=== PATIENT | female | born 1990 | race Caucasian/White ===

== ENCOUNTER 2019-07-25 17:06 | Emergency (ER) | payer MEDICAID, SELFPAY ==
[2019-07-25 17:22] VITALS: BP 136/80; PULSE 107; RESP 18; TEMP 36.3; O2SAT 97; BMI 19.3
--- NOTE | 2019-07-25 18:12 | ED_ITS ---
HPI - SOB/Dyspnea General: Chief Complaint: Shortness of Breath/Dyspnea Stated Complaint: sob Time Seen by Provider: 07/25/19 18:11 Source: patient Mode of arrival: ambulatory Limitations: no limitations History of Present Illness: HPI Narrative: Patient comes in for concerns of shortness of breath starting yesterday. Patient states that she had a fever for 3 days that broke this morning. Patient has not run a fever all day today. Patient has felt more short of breath. Patient reports not being outside the area but does report that her son was sick about 2 weeks ago and was diagnosed with viral pneumonia at that time. Patient appears well. Patient appears in no acute distress. Patient appears in no pain. MD elicited complaint: shortness of breath Review of Systems General: Reports: 10 or more systems reviewed and unremarkable except in HPI and below Resp: Reports: shortness of breath [facility] ED PFSH: Medical History (Updated 07/25/19 @ 20:03 by DOLORES Wetzel) History of live X 2 Social History Smoking and tobacco status: current every day smoker Physical Exam Const: COMMON NORMALS: no apparent distress and oriented x3 GENERAL APPEARANCE: cooperative HENMT: COMMON NORMALS: normocephalic, TM's normal bilaterally and external nose normal HEAD & SCALP: normal to inspection and normocephalic NOSE: external nose normal TYMPANIC MEMBRANE: TM's normal bilaterally MOUTH: oral and palatal mucosa normal THROAT: posterior oropharynx normal Eye: GENERAL EYE: normal appearance of both eyes Neck/C-Spine: COMMON NORMALS: full ROM Lymph: LYMPHATIC: no lymphadenopathy noted Chest: COMMONS NORMALS: inspection of chest normal Resp: COMMON NORMALS: normal respiratory effort EFFORT & INSPECTION: Yes able to speak in complete sentences Cardio: COMMON NORMALS: regular rate and regular rhythm RATE: regular rate RHYTHM: regular rhythm GI: COMMON NORMALS: non-tender : COMMON NORMALS: Yes no CVA tenderness BLADDER/KIDNEY EXAM: Yes no CVA tenderness Back/Pelvis: COMMON NORMALS: no CVA tenderness and thoracic and lumbar spine normal to inspection Extremity: COMMON NORMALS: normal to inspection Neuro: COMMON NORMALS: oriented x3 and moves all extremities Psych: COMMON NORMALS: mental status grossly normal and cooperative Skin: COMMON NORMALS: no rashes or lesions noted GENERAL SKIN EXAM: no rashes or lesions noted Course Vital Signs: Vital signs: Vital Signs Temperature 97.3 F L 04/06/20 17:22 Pulse Rate 92 07/25/19 20:00 Respiratory Rate 16 07/25/19 20:00 Blood Pressure 127/82 07/25/19 20:00 Pulse Oximetry 98 07/25/19 20:00 MDM - SOB/Dyspnea MDM Narrative: Medical decision making narrative: Patient comes in today with complaints of fever for 3 days and initiation of shortness of breath starting last night. Patient appears well. Exam notes clear lung sounds. Posterior pharynx is pink and moist. Vital signs are normal. Differential diagnosis includes upper respiratory infection, bronchitis, pneumonia, viral syndrome. Chest x-ray was normal. Flu swab was negative. Patient appears actually pretty well suspect the patient had a short viral syndrome. Patient screened for cor onavirus 19 and did not have any indicators for contact with individuals or travel to a high risk area. Recommended patient monitor for worsening signs and symptoms and return as needed for new concerns. Patient agreed to plan she was offered testing for coronavirus but denied it. Lab Data: Labs: Lab Results 07/25/19 Range/Units 18:42 Influenza Type A A g Negative (Negative) Influenza Type B A g Negative (Negative) Discharge Plan Discharge Patient Disposition: Home, Self-Care Clinical Impression: Bronchitis Condition: Stable Prescriptions: No Action ibuprofen 200 mg Tablet 800 mg PO PRN RF: 0 Discharge Orders: Discharge Order (Routine); Ordered 07/25/19 Ordered By: Kaveh Patel Referrals: Steffen Voss MD [Family Provider] - Discharge Diet: Usual diet Discharge Activity: Increase activity as tolerated Patient Instructions: Acute Bronchitis (ED) Activity Restrictions/Additional Instructions: Bronchitis is a self-limiting illness and usually resolves on its own within 7 to 10 days. Use acetaminophen or ibuprofen as needed for discomfort. Drink plenty of fluids. Return to the ER for worsening symptoms. Follow-up with primary care in 1 week as needed. Coding Level of Care Code ED Bankruptcy Judge for Luis Fernando Justice Exam Comprehensive
--- NOTE | 2019-07-25 18:19 | XR_ITS ---
WS: [id number] CHEST XRAY TECHNIQUE: Portable chest. CLINICAL INFORMATION: short of breath COMPARISON: None. FINDINGS: Heart: Normal cardiac silhouette. Lungs: Hyperinflation. No acute pulmonary infiltrates. Bones: Normal visualized bony structures. XR/XR chest 1V portable [id number] IMPRESSION: No acute chest findings
[2019-07-25 18:43] VITALS: O2SAT 98
[2019-07-25 19:23] LABS: Influenza A by IFA Negative (Negative); Influenza B by IFA Negative (Negative)
[2019-07-25 20:00] VITALS: BP 127/82; PULSE 92; RESP 16; O2SAT 98
--- NOTE | 2019-07-25 20:47 | PC.NURSE ---
Patient not in room upon dc, left without signing paperwork.
== END 2019-07-25 20:47 | disposition home or self-care (01) ==
PROVIDERS: Emergency Provider Nurse Practitioner Family; Family Provider Family Medicine
DX: J20.9 Acute bronchitis, unspecified (principal); F17.200 Nicotine dependence, unspecified, uncomplicated
CPT/HCPCS: 12345; 71045; 87804; 99282

== ENCOUNTER 2019-09-29 21:03 | Emergency (ER) | payer MEDICAID, SELFPAY ==
[2019-09-29 21:23] VITALS: BP 136/81; PULSE 91; RESP 14; TEMP 36.9; O2SAT 99; BMI 19.7
--- NOTE | 2019-09-29 21:58 | W.ED.WOUNDLC ---
HPI - Wound/Laceration General: Chief Complaint: Wound/Laceration Stated Complaint: arm lac Time Seen by Provider: 09/29/19 21:56 History of Present Illness: HPI narrative: Patient is a 29-year-old female comes to the ED with a laceration on her left forearm. Laceration occurred couple hours prior to arrival. Patient says she cut her left forearm on the edge of metal door on her vehicle. Patient says she cleaned out wound immediately afterwards. Patient is not fully sure of last tetanus shot but thinks it has been over 5 to 6 years. Associated symptoms: Denies chills, fever(s), nausea or vomiting Review of Systems Const: Denies: fever(s), chills or fatigue Eyes: Denies: change in vision or eye discomfort ENMT: Denies: throat pain, odynophagia, nasal discharge or nasal congestion Card: Denies: chest pain, palpitations, edema, swelling of feet/ankles, dyspnea on exertion or orthopnea Resp: Denies: dyspnea, productive cough or non-productive cough GI: Denies: abdominal pain, nausea, vomiting, diarrhea, constipation or hematochezia : Denies: flank pain, dysuria or hematuria Musc: Denies: neck pain, back pain or extremity swelling Skin/Breast: Reports: new lesions (Superficial laceration on left forearm.); Denies: rash Neuro: Denies: headache(s), numbness in extremities or weakness in extremities PFS ED PFSH: Medical History History of live X 2 Social History Smoking and tobacco status: current every day smoker Physical Exam Const: COMMON NORMALS: no acute distress, patient oriented x3 and alert GENERAL APPEARANCE: cooperative and comfortable HENMT: COMMON NORMALS: normocephalic HEAD & SCALP: normocephalic MOUTH: Normal oral and palatal mucosa present THROAT: posterior oropharynx normal and uvula midline Neck/C-Spine: COMMON NORMALS: supple GENERAL: Yes normal visual inspection Resp: COMMON NORMALS: normal respiratory effort, No retractions, No use of accessory muscles and clear to auscultation bilaterally AUSCULTATION: clear to auscultation bilaterally Cardio: COMMON NORMALS: regular rate, regular rhythm, S1 normal heart sound present, S2 normal heart sound present, No gallops present (Cardio), No clicks present (Cardio), No murmurs present (Cardio) and Peripheral pulses 2+ throughout RATE: regular rate RHYTHM: regular rhythm HEART SOUNDS: S1 normal heart sound present and S2 normal heart sound present PERIPHERAL PULSES: Peripheral pulses 2+ throughout GI: COMMON NORMALS: Normal to inspection, nondistended, normoactive bowel sounds present, Soft to palpation, non-tender and no masses PALPATION: Yes Soft to palpation : COMMON NORMALS: Yes no CVA tenderness BLADDER/KIDNEY EXAM: Yes no CVA tenderness Back/Pelvis: COMMON NORMALS: no CVA tenderness Extremity: NARRATIVE EXTREMITY EXAM: 2.5 cm linear superficial laceration to left forearm. It was not actively bleeding and wound was clean and not contaminated. Neuro: COMMON NORMALS: patient oriented x3 and moves all extremities SENSORIUM/ORIENTATION: Yes alert Skin: TRAUMA: laceration (2.5 cm superficial linear laceration on left forearm.) linear Procedures Laceration Laceration 1: Site: upper extremity Side (If applicable): left Size (cm): 2.5 Description: linear and clean Depth: simple, single layer Local Anesthetic: lidocaine 1% and with epi Amount of anesthesia used (mL): 10 Pre-repair: irrigated extensively (With normal saline and cleaned with CHG.) Skin layer closed with: nylon Size (cm): 4-0 Number of sutures: 7 Technique: simple, interrupted Course Vital Signs: Vital signs: Vital Signs Temperature 98.5 F 09/29/19 21:23 Pulse Rate 91 09/29/19 21:23 Respiratory Rate 16 09/29/19 22:39 Blood Pressure 136/81 09/29/19 21:23 Pulse Oximetry 99 09/29/19 21:23 MDM - Wound/Laceration MDM Narrative: Medical decision making narrative: Patient is 29-year-old female comes to the ED with a laceration to left forearm. Laceration was irrigated with normal saline and cleaned with CHG. 1% lidocaine with epi was used as local. 7 sutures were used to close laceration. Patient was given an updated tetanus shot while here in the ED. Patient was told to return to ED, PCP or urgent care in 7 to 10 days for sutures to be removed. She was given a prescription for Keflex as prophylactic treatment. Bandage was placed on laceration and she was told to keep lack dry for the next 48 hours. She was then told to clean and re-bandage laceration daily. Patient understood and agreed with plan. Discharge Plan Discharge Patient Disposition: Home, Self-Care Clinical Impression: Laceration Condition: Stable Prescriptions: New Keflex 500 mg capsule 500 mg PO Q12H 4 Days Qty: 8 RF: 0 No Action ibuprofen 200 mg Tablet 800 mg PO PRN RF: 0 Discharge Orders: Discharge Order (Routine); Ordered 09/29/19 Ordered By: Alvin Sutherland Referrals: Steffen Voss MD [Primary Care Provider] - Discharge Diet: Regular Discharge Activity: Resume usual activity Patient Instructions: Laceration (ED) Activity Restrictions/Additional Instructions: Keep laceration site dry and do not remove bandage for 48 hours. After that you can clean and re-bandage daily. Go to your PCP, urgent care or return to ED to get sutures removed in 7 to 10 days. Take full course of antibiotics as prescribed. Watch for signs of infection such as increasing redness, warmth skin tenderness and puslike drainage. If you see any of the signs return to the ED or urgent care or PCP for reevaluation. Here in the ED he received your tetanus shot and your good for another 8 to 10 years. Discharge Date/Time: 09/29/19 22:41 Coding Level of Care Code ED Air Launch Weapons Technician for Luis Fernando Justice Exam Comprehensive
[2019-09-29] MEDS: tetanus-dipt-pertussis 0.5 mL SDV IM (22:29)
[2019-09-29 22:39] VITALS: RESP 16
== END 2019-09-29 22:41 | disposition home or self-care (01) ==
PROVIDERS: Emergency Provider Physician Assistant; PCP Family Medicine
DX: S51.812A Laceration without foreign body of left forearm, initial encounter (principal); W26.8XXA Contact with other sharp object(s), not elsewhere classified, initial encounter; F17.210 Nicotine dependence, cigarettes, uncomplicated; Z23 Encounter for immunization
CPT/HCPCS: 12001; 12345; 90715; 99281; 99282

== ENCOUNTER → 2019-12-14 16:11 | Outpatient (BNVA) | payer MEDICAID, SELFPAY | PROVIDERS: PCP Family Medicine; Visit Provider Internal Medicine | DX: B18.2 Chronic viral hepatitis C (principal); E11.9 Type 2 diabetes mellitus without complications; B19.20 Unspecified viral hepatitis C without hepatic coma; R76.8 Other specified abnormal immunological findings in serum; Z72.0 Tobacco use | CPT/HCPCS: 80053; 82105; 84443; 85025; 87522 ==

== ENCOUNTER 2020-01-11 09:53 | Outpatient (CLI) | payer MEDICAID, SELFPAY ==
--- NOTE | 2020-01-11 10:15 | US_ITS ---
WS: [id number] ULTRASOUND ABDOMEN LIMITED CLINICAL INFORMATION: hep c COMPARISON: None. FINDINGS: Liver Size: Normal. Craniocaudal length: 15.4 cm. Echogenicity: Normal. Surface nodularity: None. Mass (size and location): None. Bile ducts Intrahepatic ducts: Normal. Common bile duct diameter: 0.2 cm. Gallbladder Normal. Gallstones: None. Gallbladder sludge: None. Gallbladder wall thickening: None. Pericholecystic fluid: None. Sonographic Gonzalez sign: Absent. Pancreas Normal as visualized. Right kidney: Normal. Hydronephrosis: None. Size: 11.6 cm x 5.5 cm x 4.0 cm. Abdominal aorta and IVC Visualized portions are normal. Ascites: None. US/US liver [id number] IMPRESSION: Normal abdominal ultrasound
== END 2020-01-11 09:54 | disposition home or self-care (01) ==
LOC: US 09:54
PROVIDERS: PCP Internal Medicine; Visit Provider Internal Medicine
DX: B19.20 Unspecified viral hepatitis C without hepatic coma (principal)
CPT/HCPCS: 76705

== ENCOUNTER → 2020-01-17 16:41 | Outpatient (BNVA) | payer MEDICAID, SELFPAY | PROVIDERS: PCP Family Medicine; Visit Provider Internal Medicine | DX: B18.2 Chronic viral hepatitis C (principal) | CPT/HCPCS: 87902 ==

== ENCOUNTER → 2020-11-14 13:19 | Outpatient (BNVA) | payer BC, SELFPAY | PROVIDERS: PCP Family Medicine; Visit Provider Nurse Practitioner Family | DX: B18.2 Chronic viral hepatitis C (principal) | CPT/HCPCS: 87522 ==

== ENCOUNTER 2021-10-08 15:00 | Outpatient (CLI) | payer BC, MEDICAID, SELFPAY ==
[2021-10-08 15:57] VITALS: BP 123/74; PULSE 102; RESP 18; TEMP 36.8; O2SAT 99; BMI 21.7
[2021-10-08 17:28] LABS: Basophils % 0.3 %; Eosinophils # 0.1 10^3/uL (0.0-0.8); Hematocrit 31.4 % (37.0-47.0); Hemoglobin 10.1 g/dL (11.5-15.3); Lymphocytes # 2.9 10^3/uL (0.8-4.8); Lymphocytes % 20.6 %; Mean Corpuscular HGB Conc 32.2 g/dL (30.0-36.0); Mean Corpuscular Hemoglobin 27.7 pg (28.0-34.0); Monocytes # 0.7 10^3/uL (0.2-0.9); Monocytes % 4.8 %; Neutrophils # 10.19 10^3/uL (1.8-7.7); Neutrophils % 72.4 %; Nucleated Red Blood Cells # 0.1 /100WBC; Nucleated Red Blood Cells % 0.4 %; Platelet Count 104 10^3/cmm (130-400); Red Blood Count 3.65 10^6/uL (4.1-5.3); Red Cell Distribution Width 13.4 % (12.1-15.1); White Blood Count 14.1 10^3/uL (4.0-10.0)
[2021-10-08 18:23] LABS: Anion Gap 16.6 (5-19); Blood Urea Nitrogen 7 mg/dL (6-20); Calcium 8.5 mg/dL (8.5-10.5); Carbon Dioxide 21 mmol/L (22-29); Chloride 100 mmol/L (98-107); Glomerular Filtration Rate 118.2 mL/min (90-130); Glucose 118 mg/dL (65-115); Osmolality Calculated 277 mOsm/kg (285-295); Potassium 3.6 mmol/L (3.5-5.1); Sodium 134 mmol/L (136-145)
[2021-10-08 19:05] LABS: Mean Platelet Volume 13.4 fL (7.4-10.4); Slide Review Slide Review Perform
--- NOTE | 2021-10-08 19:10 | USR_ITS ---
PROCEDURE INFORMATION: Exam: US After First Trimester, Transabdominal Exam date and time: 10/08/2021 7:23 PM Age: 31 years old Clinical indication: Lmp or gestational age (in weeks): Average is 34 w 0d; Antepartum complications; Bleeding; ; Patient HX: Semi quant hcg = 63,500; Additional info: Spotting, cramping TECHNIQUE: Imaging protocol: Real-time transabdominal obstetrical ultrasound of the maternal pelvis and a second or third trimester with image documentation. COMPARISON: US OB Limited [id number] 12/24/2017 9:58 AM FINDINGS: Gestation: Single live intrauterine gestation. heart rate: 141 beats per minute. presentation: Cephalic presentation. Placenta: Right fundal placenta. No retroplacental hemorrhage. Amniotic fluid: Amniotic fluid is normal for gestational age. Amniotic fluid index: 17.9 cm (normal) ANATOMY: midline falx: Normal cerebellum: Normal lateral ventricles: Normal cisterna magna: Normal choroid plexus: Normal upper lip and nose: Normal heart four-chamber view, heart size and position: Normal right ventricular outflow tract: Obscured by position left ventricular outflow tract: Normal kidneys: Obscured by position stomach: Normal urinary bladder: Normal spine: Normal Umbilical cord insertion site into the abdomen: Partially obscured. No visible abnormality. Umbilical cord vessel number: Three vessel cord. arms and hands: Obscured by position legs and feet: Both lower extremities are present. Visualization of feet is limited. external genitalia: Female BIOMETRY: Gestational age (AUA): Estimated gestational age 34 weeks 0 days Estimated due date (AUA): 11/19/2021 by ultrasound Estimated weight: 2159 g Estimated weight percentile: 45th percentile Biparietal diameter (BPD): 34 weeks 3 days Head circumference (HC): 34 weeks 3 days Abdominal circumference (AC): 31 weeks 3 days Femur length (FL): 35 weeks 4 days MATERNAL: Uterus: Unremarkable. Cervix: The cervix is long and closed. Right ovary/adnexa: Obscured by lack of adequate acoustic window. Left ovary/adnexa: Obscured by lack of adequate acoustic window. Intraperitoneal space: No intraperitoneal free fluid. PROCEDURE INFORMATION: Exam: US Doppler Velocimetry of the Umbilical Artery Exam date and time: 10/08/2021 7:23 PM Clinical indication: Lmp or gestational age (in weeks): Average is 34 w 0d; Antepartum complications; Bleeding; ; Patient HX: Semi quant hcg = 63,500; Additional info: Spotting, cramping TECHNIQUE: Imaging protocol: US Doppler velocimetry of the umbilical artery with Doppler color and waveform analysis. COMPARISON: No relevant prior studies available. FINDINGS: Umbilical cord and insertion: There are 2 umbilical arteries and 1 umbilical vein. Cord insertion on the abdominal wall is partially obscured. Umbilical artery Doppler: Waveforms are within normal limits for age. Umbilical artery peak systolic velocity: 60 centimeters/second Umbilical artery systolic to diastolic ratio: Systolic to diastolic ratio is within normal limits for age (2.6). US/US OB >= 14 weeks fetus [id number] IMPRESSION: 1. Single live intrauterine gestation. 2. Borderline abnormal asymmetric biometric measurements. There is decreased abdominal circumference relative to head circumference. (HC/AC ratio is 1.13). Possible asymmetric intrauterine growth restriction. IMPRESSION: Normal umbilical arterial Doppler for gestational age.
--- NOTE | 2021-10-08 19:26 | W.ED.PREGNAN ---
HPI - General: Chief complaint: Vaginal Bleeding Stated complaint: pos preg, normal periods Time Seen by Provider: 10/08/21 19:16 History of Present Illness: 31-year-old female comes in today for complaints of abdominal cramping and occasional spotting for the last 4 months. Patient's last menstrual cycle was June 03, 2021. Patient had taken a test about 2 months ago but reported as negative. Patient had taken a test last week that was positive. Patient does smoke cigarettes. Patient denies any alcohol or drug use. Patient denies any other chronic medical problems. Review of the records notes tobacco abuse and hepatitis C chronic. Date of Last Menstrual Period: 06/03/21 Associated symptoms: Deny nausea or vomiting Review of Systems General: Reports: 10 or more systems reviewed and unremarkable except in HPI and below Card: Denies: chest pain Resp: Denies: dyspnea GI: Denies: nausea or vomiting : Reports: change in menstrual flow; Denies: difficulty voiding Skin/Breast: Denies: rash PFSH ED PFSH: Medical History (Updated 10/08/21 @ 20:32 by DOLORES Wetzel) History of live X 2 Family History Other Diabetes Social History Smoking and tobacco status: current every day smoker Alcohol intake: former Marital status: Single Number of children: 2 service: No History of recent travel: No Current gender identity: Female Female Reproductive History: Date of last menstrual period: 06/03/21 Physical Exam Const: COMMON NORMALS: alert HENMT: COMMON NORMALS: atraumatic HEAD & SCALP: atraumatic Resp: COMMON NORMALS: normal respiratory effort Cardio: COMMON NORMALS: regular rate RATE: regular rate Extremity: COMMON NORMALS: normal to inspection Neuro: SENSORIUM/ORIENTATION: Yes alert Skin: COMMON NORMALS: no rashes or lesions noted GENERAL SKIN EXAM: no rashes or lesions noted Course Vital Signs: Vital signs: Vital Signs Temperature 98.3 F 10/08/21 15:57 Pulse Rate 102 H 10/08/21 15:57 Respiratory Rate 18 10/08/21 15:57 Blood Pressure 123/74 10/08/21 15:57 Pulse Oximetry 99 10/08/21 15:57 MDM - OB/Uterine Contractions Medical Decision Making Patient came in today for some complaints of pelvic cramping and spotting. Patient has not had a normal period since before May. Patient reports a positive test. On exam respirations are even lungs are clear to auscultation. Abdomen soft. Bowel sounds are present. Skin is warm and dry. Differential diagnosis includes not limited to threatened miscarriage, , urinary tract infection. Patient's blood type was O+, BMP and CBC were unremarkable. hCG was 65,000. Ultrasound noted a viable fetus at 140 heart rate and age at approximately 34 weeks. Reviewed exam with patient with recommendations for follow-up with HEAD START TEACHER. Encourage fluids and rest and return to the ER for worsening symptoms such as high fever greater than 100.4, or bleeding greater than 1 pad an hour. Patient reported understanding agreed to plan. Case management was requested for follow-up with HEAD START TEACHER appointment. Patient was instructed to stop smoking and avoid any alcohol or drugs. Patient was placed on vitamin. Lab Data : 10/08/21 15:20 10/08/21 15:20 Laboratory Results WBC 14.1 10^3/uL (4.0-10.0) H 10/08/21 15:20 RBC 3.65 10^6/uL (4.1-5.3) L 10/08/21 15:20 Hgb 10.1 g/dL (11.5-15.3) L 10/08/21 15:20 Hct 31.4 % (37.0-47.0) L 10/08/21 15:20 MCV 86.0 fl (81-99) 10/08/21 15:20 MCH 27.7 pg (28.0-34.0) L 10/08/21 15:20 MCHC 32.2 g/dL (30.0-36.0) 10/08/21 15:20 RDW 13.4 % (12.1-15.1) 10/08/21 15:20 Plt Count 104 10^3/cmm (130-400) L 10/08/21 15:20 MPV 13.4 fL (7.4-10.4) H 10/08/21 15:20 Neut % (Auto) 72.4 % 10/08/21 15:20 Lymph % (Auto) 20.6 % 10/08/21 15:20 Burnet % (Auto) 4.8 % 10/08/21 15:20 Eos % (Auto) 1.0 % 10/08/21 15:20 Baso % (Auto) 0.3 % 10/08/21 15:20 Neut # (Auto) 10.19 10^3/uL (1.8-7.7) H 10/08/21 15:20 Lymph # (Auto) 2.9 10^3/uL (0.8-4.8) 10/08/21 15:20 Burnet # (Auto) 0.7 10^3/uL (0.2-0.9) 10/08/21 15:20 Eos # (Auto) 0.1 10^3/uL (0.0-0.8) 10/08/21 15:20 Baso # (Auto) 0.0 10^3/uL (0.0-0.1) 10/08/21 15:20 Nucleated RBC % (auto) 0.4 % 10/08/21 15:20 Nucleated RBCs # 0.1 /100WBC 10/08/21 15:20 Sodium 134 mmol/L (136-145) L 10/08/21 15:20 Potassium 3.6 mmol/L (3.5-5.1) 10/08/21 15:20 Chloride 100 mmol/L (98-107) 10/08/21 15:20 Carbon Dioxide 21 mmol/L (22-29) L 10/08/21 15:20 Anion Gap 16.6 (5-19) 10/08/21 15:20 BUN 7 mg/dL (6-20) 10/08/21 15:20 Creatinine 0.6 mg/dL (0.5-0.9) 10/08/21 15:20 GFR Calculation 118.2 mL/min (90-130) 10/08/21 15:20 Glucose 118 mg/dL (65-115) H 10/08/21 15:20 Calculated Osmolality 277 mOsm/kg (285-295) L 10/08/21 15:20 Calcium 8.5 mg/dL (8.5-10.5) 10/08/21 15:20 Ser , Semi-Qnt 42080.00 mIU/mL 10/08/21 15:20 Blood Type O Positive 10/08/21 15:20 Rho(D) Type Positive 10/08/21 15:20 Discharge Plan Discharge Patient Disposition: Home Clinical Impression: 34 weeks gestation of , Threatened miscarriage, Tobacco abuse Condition: Stable Prescriptions: New PNV #[id number] 30 mg iron-10 mg iron-1 mg capsule 1 cap PO DAILY Qty: 30 6RF No Action sofosbuvir-velpatasvir [Epclusa] 400-100 mg tablet 1 tab PO DAILY 84 Days Qty: 28 2RF ibuprofen 200 mg Tablet 800 mg PO PRN 0RF Discharge Orders: Discharge ED (Routine); Ordered 10/08/21 Ordered By: Kaveh Patel Referrals: Steffen Voss MD [Primary Care Provider] - Patient Instructions: at 31 to 34 Weeks (ED) Activity Restrictions/Additional Instructions: Healthy diet and activity. Pelvic rest until follow-up with HEAD START TEACHER. You can use acetaminophen as needed for pain. Drink plenty of water. Stop smoking. Take vitamin daily. Follow-up with HEAD START TEACHER for further instruction. Case management will contact you to help with HEAD START TEACHER follow-up. Return to ER for fever greater than 100.4, bleeding greater than 1 pad an hour, or new concerns. Coding Level of Care Code ED Quarry Equipment Operator for Luis Fernando Fwd Exam Detailed
--- NOTE | 2021-10-09 09:46 | PC.SOCIAL ---
Addendum entered by Tomasa Fortune 11/13/21 13:36: construction project manager was told that patient was denied care, attempted to contact patient, unable to speak with patient at this time. Original Note: OBGYN Follow up Message request sent to [facility] requesting follow up appointment. Clinic will call patient with appointment.
== END 2021-11-07 10:10 | disposition home or self-care (01) ==
LOC: ER 20:32 → OPOB 11-07 10:03 → OBGYN 11-07 10:06
PROVIDERS: Family Medicine; Emergency Provider Nurse Practitioner Family; PCP Family Medicine; Visit Provider Family Medicine
DX: O20.0 Threatened abortion (principal); Z3A.34 34 weeks gestation of pregnancy; O99.333 Smoking (tobacco) complicating pregnancy, third trimester; F17.210 Nicotine dependence, cigarettes, uncomplicated
CPT/HCPCS: 36415; 76805; 80048; 84702; 85025; 86900; 99283

== ENCOUNTER 2021-11-07 10:00 | Outpatient (CLI) | payer BC, MEDICAID, SELFPAY ==
[2021-11-07 10:26] VITALS: RESP 17
[2021-11-07 10:31] VITALS: BP 119/70; PULSE 98; BMI 23.2
[2021-11-07 10:46] VITALS: BP 133/81; PULSE 89
[2021-11-07 11:00] VITALS: BP 130/80; PULSE 91
--- NOTE | 2021-11-07 11:11 | US_ITS ---
WS: [id number] OBSTETRICAL ULTRASOUND AMNIOTIC FLUID INDEX UMBILICAL ARTERY DOPPLER HISTORY: Growth, LUCIO, Umbilical Artery Doppler COMPARISON: 10/08/2021 Presentation: Vertex. Cervix: Closed and normal length. Placenta: Anterior, no previa or abruption. Grade: 1 HEART: FHR of 131 BPM. measurements: BPD = 9.3 cm = 37w6d HC = 33.2 cm = 37w6d AC = 32.1 cm = 36w0d FL = 7.4 cm = 37w4d LUCIO: 8.3 cm, above the 5th percentile. Largest vertical pocket of amniotic fluid is 3.9 cm. EFW: 3039 g; 47 %. AGA by ultrasound: 37w2d DAVID by ultrasound: 11/26/2021 Measurements are internally concordant. UMBILICAL ARTERY DOPPLER Waveform analysis: Normal systolic and diastolic velocities. Diastolic velocity remains above the bas jackie. Normal upstroke of waveform. SD ratios: SD ratios range from 2.1-2.9 Resistivity indices: 0.6 US/US OB F/U with umb art IMPRESSION: 1. Single intrauterine gestation of 37 weeks 2 days with an EDC of 11/26/2021. 2. Low normal anatomic fluid index at 8.3 cm. Visually the amount of fluid yesenia ears normal. 3. Normal waveforms and SD ratio of the umbilical artery. There is no reversal of flow or absent flow. 4. Normal placenta, grade 1.
== END 2021-11-07 12:33 | disposition home or self-care (01) ==
LOC: OPOB 10:10 → OBGYN 10:12
PROVIDERS: PCP Family Medicine; Visit Provider Family Medicine
DX: O36.5990 Maternal care for other known or suspected poor fetal growth, unspecified trimester, not applicable or unspecified (principal); Z3A.00 Weeks of gestation of pregnancy not specified
CPT/HCPCS: 59025; 76816; 76820

== ENCOUNTER 2021-11-13 02:31 | Inpatient (IN) | payer BC, MEDICAID, SELFPAY ==
[2021-11-13] VITALS (11 sets, daily range): BP systolic 122–133; BP diastolic 67–81; PULSE 93–113; RESP 16–20; TEMP 36.9–37.1; O2SAT 98–100; BMI 23.7
[2021-11-13] MEDS: lactated ringers 1,000 ML 999 ML IV (03:08)
[2021-11-13] MEDS: ampicillin 2,000 MG in sodium chloride 0.9% (plus) 50 ML 100 MG IV (03:19)
[2021-11-13] MEDS: fentaNYL 50 mcg/mL INJ 2mL IVP (04:22)
--- NOTE | 2021-11-13 04:34 | PC.NURSE ---
Dr. Tobar and respiratory at bedside at this time to perform conscious sedation.
[2021-11-13 05:18] LABS: Amphetamines Screen Urine Negative (Negative); Barbiturates Screen Urine Negative (Negative); Benzodiazepines Screen Urine Negative (Negative); Cocaine Screen Urine Negative (Negative); Opiate Screen Urine Negative (Negative); PCP Screen Urine Negative (Negative); THC Screen Urine Negative (Negative)
[2021-11-13 05:19] LABS: Basophils % 0.3 %; Eosinophils # 0.1 10^3/uL (0.0-0.8); Eosinophils % 1.1 %; Hematocrit 32.3 % (37.0-47.0); Lymphocytes % 31.5 %; Mean Corpuscular Hemoglobin 26.3 pg (28.0-34.0); Mean Platelet Volume 14.1 fL (7.4-10.4); Monocytes # 0.7 10^3/uL (0.2-0.9); Monocytes % 5.5 %; Neutrophils # 7.74 10^3/uL (1.8-7.7); Neutrophils % 60.6 %; Nucleated Red Blood Cells # 0.1 /100WBC; Nucleated Red Blood Cells % 0.7 %; Platelet Count 99 10^3/cmm (130-400); Red Cell Distribution Width 14.9 % (12.1-15.1); White Blood Count 12.8 10^3/uL (4.0-10.0)
--- NOTE | 2021-11-13 05:19 | PM.DELIVERY ---
Delivery Note: Date of delivery: November 13, 2021 Pre-delivery diagnoses: IUP at 39 weeks 1 day gestation Active labor No care Post-delivery diagnoses: IUP at 39 weeks 1 day gestation No care Normal spontaneous vaginal delivery Retained placenta hemorrhage due to retained placenta Delivering Physician: Maddy Ortega MD Estimated blood loss (mL): 1,200 Delivery: This is a 31-year-old at 39 weeks 1 day gestation by a 34-week ER ultrasound who had essentially no care until 36 weeks 6 days gestation. She presented to labor and delivery in active labor 4 cm 90% effaced -3 station. She did not have time to receive an epidural because her labor proceeded precipitously. When she was 8 cm and feeling like she had to push artificial rupture membranes was performed with clear fluid. Shortly thereafter the patient was an anterior lip and had a normal spontaneous vaginal delivery of a viable female weight 2.775 kg Apgars 8 and 9 , over an intact perineum. The infant was suctioned at delivery and placed on the mother's chest. The cord was clamped and cut. Cord blood was obtained. Gentle traction was used on the cord with fundal massage to try and release the placenta however it appeared to have a velamentous cord insertion. The cord easily lengthened and trailed a significant amount of membranes while the placenta remained in the uterus. The patient was given a dose of fentanyl and an attempt was made to manually extract the placenta but the patient did not tolerate this. Dr. Tobar kindly came from the ER and administered conscious sedation with propofol and again attempt was made to manually extract the placenta. I was able to remove small pieces of the placenta but the majority of it was behind a bottleneck in the uterus. Decision was made to then take the patient to the OR for general anesthesia. See OR report for further details. Coding Level of Care Code Acute Clinical Services Professional for Luis Fernando Justice
[2021-11-13 05:21] LABS: Slide Review Slide Review Perform
--- NOTE | 2021-11-13 05:28 | PM.OP ---
Operative Report Date of procedure: November 13, 2021 Pre-op diagnosis: Retained placenta Procedure done: Manual extraction of retained placenta Surgeon: Maddy Ortega MD Estimated blood loss (mL): 400 IV fluids (mL): 400 Urine output: Moderate urine output with fundal pressure Procedure: The patient was taken to the OR where general anesthesia was administered. She had a significant amount of blood loss prior to the procedure estimated to be at least 1200 mL in the delivery room and on her bed. Once general anesthesia was administered the patient was relaxed where I was able to manually extract the placenta easily. It came out in one large and several small pieces with approximately 400 mL of EBL. Manual exploration was performed of the uterine cavity and it was felt to be clear of any significant remaining placenta. At that time Pitocin was started and the uterus clamped down nicely. The patient had bilateral first degree labial lacerations that were hemostatic but were reapproximated using 3-0 chromic in an interrupted fashion. Patient was awakened in the OR and taken to recovery in stable condition.
--- NOTE | 2021-11-13 06:00 | ANES.PREANE2 ---
Pre-Anesthetic Assessment Height/Weight: Height 1.68 m Preop Diagnosis: Retained placenta Familial anesthetic complications: None Last intake: 3 hrs ago Social Tobacco marijuana Exam alert, oriented x 3, clear to auscultation bilaterally and regular rate & rhythm Airway Mallampati: Class I Dentition: other (poor dentition) Anesthetic Plan ASA status: 2E Anesthesia: General Risk of > 500 ml blood loss (7ml/kg in children): Yes, adequate IV access and fluids planned Medications/Allergies Home Medications Medication Instructions Recorded Confirmed Last Taken Type vitamin#30 30 mg iron-10 1 cap PO DAILY #30 caps 10/08/21 11/07/21 Unknown Rx mg iron-folic acid 1 mg-omg3 capsule ferrous sulfate 325 mg (65 mg 325 mg PO DAILY 11/07/21 11/07/21 Unknown History iron) tablet (Iron (ferrous sulfate)) Allergies Allergy/AdvReac Type Severity Reaction Status Date / Time No Known Allergies Allergy Verified 10/21/21 14:27 [facility] Anesthesia Medical History History of live X 2 Family History Other Diabetes Social History Smoking and tobacco status: current every day smoker Alcohol intake: former Marital status: Single Number of children: 2 service: No History of recent travel: No Current gender identity: Female Female Reproductive History Date of last menstrual period: 06/03/21 Data Anesthesia : 11/13/21 03:00 Short CBC 11/13/21 Range/Units 03:00 WBC 12.8 H (4.0-10.0) 10^3/uL Hgb 10.0 L (11.5-15.3) g/dL Hct 32.3 L (37.0-47.0) % MCV 85.0 (81-99) fl Plt Count 99 L (130-400) 10^3/cmm Neut % (Auto) 60.6 % Neut # (Auto) 7.74 H (1.8-7.7) 10^3/uL Blood Bank 11/13/21 03:00 Blood Type O Positive Rho(D) Type Positive Antibody Screen Negative Cardiac Studies: No Data to Display
[2021-11-13] MEDS: acetaminophen 325 mg Tablet 650 MG PO (06:20)
[2021-11-13 06:46] LABS: Hematocrit 25.8 % (37.0-47.0); Hemoglobin 7.8 g/dL (11.5-15.3); Mean Corpuscular HGB Conc 30.2 g/dL (30.0-36.0); Mean Corpuscular Hemoglobin 26.3 pg (28.0-34.0); Mean Corpuscular Volume 86.9 fl (81-99); Mean Platelet Volume 13.9 fL (7.4-10.4); Platelet Count 86 10^3/cmm (130-400); Red Blood Count 2.97 10^6/uL (4.1-5.3); Red Cell Distribution Width 14.6 % (12.1-15.1); White Blood Count 21.1 10^3/uL (4.0-10.0)
[2021-11-13] MEDS: ceFAZolin 1,000 MG in sodium chloride 0.9% (plus) 50 ML 100 MG IV ×3 (06:46→21:41)
[2021-11-13] MEDS: prenatal vitamin Capsule 1 CAP PO (09:25)
[2021-11-13] MEDS: docusate sodium 100 mg Capsule PO ×2 (09:26→21:41)
[2021-11-13] MEDS: ibuprofen 800 mg tablet PO (09:26)
--- NOTE | 2021-11-13 09:31 | PC.NURSE ---
Downtime Note: 0231: Pt here at this time. See paper strip for FHTs. 0251: Pt on monitor at this time in OB2 0308: LR started for epidural bolus 999mls/hr 0310: FHT 130s moderate variability Contractions every 2 minutes 0318: strip initialled at this time 0319: Ampicillin IVPB 2g bolus for gbs prophylaxis started at this time. 0330: FHT 150s moderate variability Contractions every 2 minutes 0331: strip initialled at this time 0342: Pt set up at this time for delivery. Dr. Ortega and this RN at bedside at this time. 0345: AROM performed at this time by Dr. Ortega. Clear fluid. 0349: LR decreased to 125mls/hr 0352: FHT 150s moderate variability Contractions every 2 minutes strip initialled at this time 0355: LR increased to 999mls/hr 0406: Pushing initiated 0410: FHT 140s moderate variability Contractions every 1.5-2 minutes; pt off monitor at this time due to delivery 0419: Verbal order for Fentanyl 50mcg IVP x1 dose from Dr. Ortega at this time 0422: Fentanyl administered at this time IVP. 0430: Dr. Ortega stated to call Anesthesia to perform conscious sedation at bedside to remove placenta. This nurse stated ER doctor would be called to do this. 0431: Dr. Tobar from ER in room at this time. Propafol 10mL given at this time 0433: Dr. Tobar stated he administered 60 of propafol 0434: Dr. Ortega attempted to manually remove placenta at this time. Pt unable to relax. 0435: Dr. Tobar stated he administered 150 more of Propofol 0437: Dr. Ortega stated to call anesthesia for D&C 0440: Dr. Tobar stated D&C would probably be needed 0441: Baby to PP room with sister and FOB 0443: Dr. Ortega stated to ready pt for OR 0445: In OR 0445: Latasha Benoit CRNA at bedside 0458: Latasha Benoit CRNA intubated pt at this time 0503: Dr. Ortega able to manually remove placenta at this time. 0507: Dr. Ortega sutured 1 degree bilateral labial lacerations at this time with 3-0 Chromic x1. 0513: Fundal massage performed at this time. Fundus -2 to umbilicus, scant bleeding.
--- NOTE | 2021-11-13 09:58 | PC.NURSE ---
PLACENTA WAS MANUALLY REMOVED UNDER GENERAL ANESTHESIA BY DR. NIELSEN. SEE OTHER NURSE'S NOTE FOR TIMES. Latasha SAXENA CRNA AND DR. OJEDA PRESENT. COUNTS PERFORMED BEFORE SURGERY BUT NO INSTRUMENTS USED. DR. NIELSEN ENTERED PT'S VAGINA MANUALLY AND REMOVED PLACENTA AND MANY CLOTS.
--- NOTE | 2021-11-13 10:05 | PC.NURSE ---
Called Dr. Ortega at [phone] to discuss pain medication options. Pt rates pain 9/10. Administered morning medications, ibuprofen, docusate, and vitamin. Pt states pain is uncontrollable. Dr. Ortega approved tordal 30 mg IVP Q8H x4 doses and tylenol 1000 mg Q8H PRN. Put ibuprofen on hold until tordal doses are complete.
[2021-11-13] MEDS: acetaminophen 500 mg Tablet 1000 MG PO (10:21)
--- NOTE | 2021-11-13 12:05 | PC.NURSE ---
Spoke with mom regarding children living in the household. Mom stated she has two other boys, one she has full custody of, and the other son she has joint physical custody with the son's father. Mom stated she was a smoker during her entire . Mom stated she did not know she was , and at the time she found out she thought she could've only been approximately 14 weeks along. She denies any care prior to an ER visit by which they performed ultrasound measuring mom 34 weeks along. Asked mom if she was having regular periods, she stated yes that she was on Nuvaring, then stated at the time she found out she was she removed her Nuvaring herself. Mom denied using illegal drugs and smoking marijuana.
[2021-11-13] MEDS: ketorolac 30 mg/mL INJ IVP ×2 (15:11→23:48)
[2021-11-13 17:57] LABS: Hematocrit 22.2 % (37.0-47.0); Hemoglobin 7.2 g/dL (11.5-15.3); Mean Corpuscular HGB Conc 32.4 g/dL (30.0-36.0); Mean Corpuscular Hemoglobin 26.8 pg (28.0-34.0); Mean Corpuscular Volume 82.5 fl (81-99); Platelet Count 72 10^3/cmm (130-400); Red Blood Count 2.69 10^6/uL (4.1-5.3); Red Cell Distribution Width 14.9 % (12.1-15.1); White Blood Count 17.9 10^3/uL (4.0-10.0)
[2021-11-13 18:19] LABS: Glucose Point of Care 70 mg/dL (70-110)
--- NOTE | 2021-11-13 18:53 | PC.NURSE ---
Called Dr. Ortega at [phone] with update on new hemagram results with current hemoglobin, platelets, and hematocrit. Dr. Ortega did not give any new orders at this time.
--- NOTE | 2021-11-13 20:42 | W.ED.GENADLT ---
HPI - General Adult History of Present Illness: . [facility] ED PFSH: Medical History History of live X 2 Family History Other Diabetes Social History Smoking and tobacco status: current every day smoker Alcohol intake: former Marital status: Single Number of children: 2 service: No History of recent travel: No Current gender identity: Female Female Reproductive History: Date of last menstrual period: 06/03/21 : 6 Procedures Procedural Sedation Indication: other (retained placenta) Presedation Evaluation: pt awake and alert with normal vitals. hemorrhage ASA Class: I Time of Last PO Intake: 23:00 Preparation: engine monitor applied, pulse oximeter, supplemental O2 applied, suction/airway equipment at bedside and IV secured IV Propofol dose (mg): 150 Complications: none Additional Comments: sedation started at 0431 Course Vital Signs: Vital signs: Vital Signs Temperature 98.5 F 11/13/21 15:26 Pulse Rate 97 11/13/21 15:26 Respiratory Rate 16 11/13/21 09:15 Blood Pressure 133/76 11/13/21 15:26 Pulse Oximetry 99 11/13/21 15:26 Oxygen Delivery Ma thod 11/13/21 15:26 MDM - General Adult Medical Decision Making I was called to labor and delivery by Dr. Ortega to perform a conscious sedation for a hemorrhage from the retained placenta and manual removal. I did have an ER nurse there with me patient was on monitor had supplemental oxygen as well patient's blood pressure for the procedure is in the 140s. I had respiratory therapy at bedside as well with qel-[id number] and airway equipment available if needed. I did pressure 150 mg of propofol to relax patient so Dr. Ortega could attempt manual retrieval of the placenta she was having hemorrhage at that time. The manual retrieval was unsuccessful patient was taken to the OR roughly at 442 for D&C. Patient never had any desaturation her blood pressures were normal Lab Data : 11/13/21 17:46 Laboratory Results WBC 17.9 10^3/uL (4.0-10.0) H 11/13/21 17:46 RBC 2.69 10^6/uL (4.1-5.3) L 11/13/21 17:46 Hgb 7.2 g/dL (11.5-15.3) L 11/13/21 17:46 Hct 22.2 % (37.0-47.0) L 11/13/21 17:46 MCV 82.5 fl (81-99) D 11/13/21 17:46 MCH 26.8 pg (28.0-34.0) L 11/13/21 17:46 MCHC 32.4 g/dL (30.0-36.0) D 11/13/21 17:46 RDW 14.9 % (12.1-15.1) 11/13/21 17:46 Plt Count 72 10^3/cmm (130-400) L 11/13/21 17:46 MPV fL (7.4-10.4) 11/13/21 17:46 Neut % (Auto) 60.6 % 11/13/21 03:00 Lymph % (Auto) 31.5 % 11/13/21 03:00 [place] % (Auto) 5.5 % 11/13/21 03:00 Eos % (Auto) 1.1 % 11/13/21 03:00 Baso % (Auto) 0.3 % 11/13/21 03:00 Neut # (Auto) 7.74 10^3/uL (1.8-7.7) H 11/13/21 03:00 Lymph # (Auto) 4.0 10^3/uL (0.8-4.8) 11/13/21 03:00 [place] # (Auto) 0.7 10^3/uL (0.2-0.9) 11/13/21 03:00 Eos # (Auto) 0.1 10^3/uL (0.0-0.8) 11/13/21 03:00 Baso # (Auto) 0.0 10^3/uL (0.0-0.1) 11/13/21 03:00 Nucleated RBC % (auto) 0.7 % 11/13/21 03:00 Nucleated RBCs # 0.1 /100WBC 11/13/21 03:00 POC Glucose 70 mg/dL (70-110) 11/13/21 18:15 Urine Opiates Screen Negative ng/mL (Negative) 11/13/21 03:00 Ur Barbiturates Screen Negative ng/mL (Negative) 11/13/21 03:00 Ur Phencyclidine Scrn Negative ng/mL (Negative) 11/13/21 03:00 Ur Amphetamines Screen Negative ng/mL (Negative) 11/13/21 03:00 U Benzodiazepines Scrn Negative ng/mL (Negative) 11/13/21 03:00 Urine Cocaine Screen Negative ng/mL (Negative) 11/13/21 03:00 U Marijuana (THC) Screen Negative ng/mL (Negative) 11/13/21 03:00 Blood Type O Positive 11/13/21 03:00 Rho(D) Type Positive 11/13/21 03:00 Antibody Screen Negative 11/13/21 03:00 Crossmatch See Detail 11/13/21 03:00 Discharge Plan Discharge Patient Disposition: Home Condition: Stable Prescriptions: No Action PNV #[id number] acid-omega3 30 mg iron-10 mg iron-1 mg capsule 1 cap PO DAILY Qty: 30 6RF Iron (ferrous sulfate) 325 mg (65 mg iron) Tablet 325 mg PO DAILY Referrals: Steffen Voss MD [Primary Care Provider] - Coding Level of Care Code ED Joint Terminal Attack Controller for Luis Fernando Justice
[2021-11-14 04:20] VITALS: BP 121/77; PULSE 94; TEMP 36.8; O2SAT 99
[2021-11-14 06:41] VITALS: PULSE 94; TEMP 36.8; O2SAT 99
[2021-11-14] MEDS: ketorolac 30 mg/mL INJ IVP ×2 (07:46→15:32)
[2021-11-14] MEDS: docusate sodium 100 mg Capsule PO (07:47)
[2021-11-14] MEDS: prenatal vitamin Capsule 1 CAP PO (07:47)
[2021-11-14 08:00] VITALS: BP 129/81; PULSE 104; RESP 16; TEMP 36.9; O2SAT 98
[2021-11-14] MEDS: acetaminophen 500 mg Tablet 1000 MG PO (09:19)
[2021-11-14 13:28] VITALS: BP 141/86; PULSE 95; RESP 18; TEMP 36.9; O2SAT 99
[2021-11-14] MEDS: lanolin oint 7 gm 1 APPLIC TOPICAL (15:39)
--- NOTE | 2021-11-14 17:31 | PM.DCS ---
Discharge Providers Date of Admission: 11/13/21 02:31 Date of Discharge: November 14, 2021 Attending Provider at Admission: Maddy Ortega MD Attending Provider at Discharge: Maddy Ortega MD Primary Care Provider: Steffen Voss MD Reason for Visit Reason for Visit: Abd Pain Hospital Course Hospital Course This is a 31-year-old who was admitted in active labor. She had a normal spontaneous vaginal delivery of a viable female . She had a retained placenta after delivery and was taken to the OR for general anesthesia and manual extraction. She has done well post procedure. She is ambulating, tolerating a regular diet, has good pain control and has very light vaginal bleeding. She is comfortable with discharge home. Physical Exam Narrative: Alert and oriented, sitting up in bed resting, heart regular rate and rhythm, lungs clear to auscultation bilaterally, abdomen soft and nontender, fundus firm and U- 3, no calf tenderness, no edema. Discharge Data Studies Completed and Pending Pending at discharge Category Date Time Status Leukocyte Reduced RBC Routine Lab 11/13/21 03:00 Results Type and Screen Routine Lab 11/13/21 03:00 Results Laboratory Results WBC 17.9 10^3/uL (4.0-10.0) H 11/13/21 17:46 RBC 2.69 10^6/uL (4.1-5.3) L 11/13/21 17:46 Hgb 7.2 g/dL (11.5-15.3) L 11/13/21 17:46 Hct 22.2 % (37.0-47.0) L 11/13/21 17:46 MCV 82.5 fl (81-99) D 11/13/21 17:46 MCH 26.8 pg (28.0-34.0) L 11/13/21 17:46 MCHC 32.4 g/dL (30.0-36.0) D 11/13/21 17:46 RDW 14.9 % (12.1-15.1) 11/13/21 17:46 Plt Count 72 10^3/cmm (130-400) L 11/13/21 17:46 MPV fL (7.4-10.4) 11/13/21 17:46 Neut % (Auto) 60.6 % 11/13/21 03:00 Lymph % (Auto) 31.5 % 11/13/21 03:00 [place] % (Auto) 5.5 % 11/13/21 03:00 Eos % (Auto) 1.1 % 11/13/21 03:00 Baso % (Auto) 0.3 % 11/13/21 03:00 Neut # (Auto) 7.74 10^3/uL (1.8-7.7) H 11/13/21 03:00 Lymph # (Auto) 4.0 10^3/uL (0.8-4.8) 11/13/21 03:00 [place] # (Auto) 0.7 10^3/uL (0.2-0.9) 11/13/21 03:00 Eos # (Auto) 0.1 10^3/uL (0.0-0.8) 11/13/21 03:00 Baso # (Auto) 0.0 10^3/uL (0.0-0.1) 11/13/21 03:00 Nucleated RBC % (auto) 0.7 % 11/13/21 03:00 Nucleated RBCs # 0.1 /100WBC 11/13/21 03:00 POC Glucose 70 mg/dL (70-110) 11/13/21 18:15 Urine Opiates Screen Negative ng/mL (Negative) 11/13/21 03:00 Ur Barbiturates Screen Negative ng/mL (Negative) 11/13/21 03:00 Ur Phencyclidine Scrn Negative ng/mL (Negative) 11/13/21 03:00 Ur Amphetamines Screen Negative ng/mL (Negative) 11/13/21 03:00 U Benzodiazepines Scrn Negative ng/mL (Negative) 11/13/21 03:00 Urine Cocaine Screen Negative ng/mL (Negative) 11/13/21 03:00 U Marijuana (THC) Screen Negative ng/mL (Negative) 11/13/21 03:00 Blood Type O Positive 11/13/21 03:00 Rho(D) Type Positive 11/13/21 03:00 Antibody Screen Negative 11/13/21 03:00 Crossmatch See Detail 11/13/21 03:00 Vitals Last Vital Signs Temp 98.5 F 11/14/21 13:28 Pulse 95 11/14/21 13:28 Resp 18 11/14/21 13:28 BP 141/86 11/14/21 13:28 Pulse Ox 99 11/14/21 13:28 O2 Del Method 11/14/21 13:28 Discharge Plan Discharge Patient Disposition: Home Condition: Stable Prescriptions: Continued PNV #49-vrif-qseba acid-omega3 30 mg iron-10 mg iron-1 mg capsule 1 cap PO DAILY Qty: 30 6RF Iron (ferrous sulfate) 325 mg (65 mg iron) Tablet 325 mg PO DAILY Discharge Orders: Discharge Order (Routine); Ordered 11/14/21 Ordered By: Maddy Ortega Referrals: Steffen Voss MD [Primary Care Provider] - Maddy Ortega MD [Physician] - 2 weeks (2-3 weeks f/u) Discharge Diet: Usual diet Discharge Activity: Limit activity as instructed Patient Instructions: OB Discharge Report, OB Anesthesia Instructions, OB Food/Drug Interaction Guide, OB Home Care, OB Proud Parent Packet, OB Vaginal Deliveries Activity Restrictions/Additional Instructions: Nothing per vagina for 6 weeks Discharge Attestations Time Spent in Discharge Care*: less than 30 min Quality Metrics Clinical Quality Measures [ No reported AMI, CVA or VTE this stay] Coding Level of Care Code Acute Chg FW DC note
[2021-11-14 20:00] VITALS: BP 131/77; PULSE 96; RESP 16; TEMP 37; O2SAT 99
[2021-11-14 20:15] VITALS: BP 131/77; PULSE 96; RESP 16; TEMP 37; O2SAT 99
--- NOTE | 2021-11-14 23:16 | PC.NURSE ---
Cleaned up room, changed bedding because patient boarding with .
== END 2021-11-14 20:15 | disposition home or self-care (01) | DRG 806 ==
PROVIDERS: Admitting Provider Family Medicine; PCP Family Medicine; Visit Provider Family Medicine
PROC: 10D17Z9 Manual Extraction of Products of Conception, Retained, Via Natural or Artificial Opening (ICD-10-PCS; CPT 59840; principal; 2021-11-13 04:40)
DX: O62.3 Precipitate labor (principal); O72.2 Delayed and secondary postpartum hemorrhage; Z37.0 Single live birth; O43.123 Velamentous insertion of umbilical cord, third trimester; O70.0 First degree perineal laceration during delivery; Z3A.39 39 weeks gestation of pregnancy
CPT/HCPCS: 36415; 36416; 59409; 80306; 82962; 85025; 85027; 86850; 86900; 86920; 99211; J0290; J0330; J0690; J1100; J1885; J2405; J2550; J2704; J3010

== ENCOUNTER 2022-02-26 10:15 | Day surgery (SDC) | payer BC, MEDICAID, SELFPAY ==
[2022-02-25 13:36] VITALS: BMI 21.6
--- NOTE | 2022-02-25 14:13 | ANES.PREANE2 ---
Pre-Anesthetic Assessment Height/Weight: Height 1.68 m Weight 60.781 kg Preop Diagnosis: Desire permanent sterilization Operation Date: 02/26/22 11:45 Proposed Procedures p Laparoscopic Salpingectomy(Bilateral) - Melecio Keenan MD Familial anesthetic complications: None Was Beta Meka taken within 24 hours: N/A Was Clonidine taken within 24 hours: N/A Social Tobacco and No alcohol Exam alert, oriented x 3 and regular rate & rhythm Airway Submandibular: within normal limits Cervical ROM: within normal limits Mallampati: Class II Dentition: chipped Comments: Comments: Poor dentition Pulmonary Chronic Obstructive Pulmonary Disease CV/HEM Anemia Hepatic Hepatitis (C) Anesthetic Plan ASA status: 2 Anesthesia: General Medications/Allergies Home Medications Medication Instructions Recorded Confirmed Last Taken Type vitamin#30 30 mg iron-10 1 cap PO DAILY #30 caps 10/08/21 02/25/22 Unknown Rx mg iron-folic acid 1 mg-omg3 capsule ferrous sulfate 325 mg (65 mg 325 mg PO DAILY 11/07/21 02/25/22 Unknown History iron) tablet (Iron (ferrous sulfate)) Allergies Allergy/AdvReac Type Severity Reaction Status Date / Time No Known Allergies Allergy Verified 02/25/22 13:34 [facility] Anesthesia Medical History History of live X 2 Family History Father Diabetes Hyperlipidemia Hypertension Stroke Grandmother Diabetes maternal Mother Heart disease Denies family history of Colon cancer Ovarian cancer Clotting disorder Breast cancer Anesthesia complication Bleeding disorder Uterine cancer Thyroid condition Social History (Updated 01/21/22 @ 08:11 by Fe Fallon RN) Smoking and tobacco status: current every day smoker (8 cigarettes per day ) service: No History of recent travel: No Current gender identity: Female Female Reproductive History Date of last menstrual period: 06/03/21 Data Anesthesia Cardiac Studies: No Data to Display
[2022-02-25 14:39] LABS: Basophils % 0.3 %; Eosinophils % 0.1 %; Hematocrit 35.8 % (37.0-47.0); Hemoglobin 10.6 g/dL (11.5-15.3); Lymphocytes # 2.3 10^3/uL (0.8-4.8); Lymphocytes % 32.9 %; Mean Corpuscular HGB Conc 29.6 g/dL (30.0-36.0); Mean Corpuscular Hemoglobin 22.7 pg (28.0-34.0); Mean Corpuscular Volume 76.7 fl (81-99); Mean Platelet Volume 12.2 fL (7.4-10.4); Monocytes # 0.4 10^3/uL (0.2-0.9); Neutrophils # 4.24 10^3/uL (1.8-7.7); Neutrophils % 60.4 %; Nucleated Red Blood Cells % 0 %; Platelet Count 144 10^3/cmm (130-400); Red Blood Count 4.67 10^6/uL (4.1-5.3); Red Cell Distribution Width 16.8 % (12.1-15.1)
[2022-02-25 14:42] LABS: OR HCG Qualitative Urine Negative (Negative)
[2022-02-25 14:56] LABS: Alanine Aminotransferase 14 U/L (0-33); Albumin Level 4.7 g/dL (3.5-5.2); Alkaline Phosphatase 98 U/L (35-105); Aspartate Amino Transferase 15 U/L (0-32); Blood Urea Nitrogen 11 mg/dL (6-20); Calcium 9.2 mg/dL (8.5-10.5); Carbon Dioxide 24 mmol/L (22-29); Chloride 102 mmol/L (98-107); Globulin 2.8 g/dL (1.3-4.6); Glomerular Filtration Rate 58.7 mL/min (90-130); Glucose 79 mg/dL (65-115); Osmolality Calculated 284 mOsm/kg (285-295); Sodium 138 mmol/L (136-145); Total Bilirubin 0.2 mg/dL (0.15-1.2); Total Protein 7.5 g/dL (6.6-8.7)
[2022-02-25 15:37] LABS: Slide Review Slide Review Perform
[2022-02-25 17:17] LABS: Urine Appearance SL Hazy (CLEAR); Urine Color Yellow (Yellow)
[2022-02-25 17:18] LABS: Add Urine Culture? No; Add Urine Microscopic? YES; Amorphous Sediment Urine 3+ /hpf; Bacteria Urine 1+ /hpf; Bilirubin Urine Neg (Negative); Blood Urine Neg (Negative); Glucose Urine UA Norm (Normal); Ketones Urine Negative (Negative); Leukocyte Esterase Urine Trace (Negative); Nitrate Urine Positive (Negative); Protein Urine Neg (Negative); RBC Urine 0-4 /hpf (0-2); Urobilinogen Urine Norm (Negative); WBC Urine 0-4 /hpf (0-5); pH Urine 6.5 (5-7)
[2022-02-26] VITALS (12 sets, daily range): BP systolic 110–145; BP diastolic 62–92; PULSE 76–96; RESP 16–18; TEMP 36.4–36.7; O2SAT 97–100
--- NOTE | 2022-02-26 10:26 | W.PM.OPSUD ---
Surgery/Procedure H&P Update DATE OF PROCEDURE: February 26, 2022 DATE H&P PERFORMED: 02/24/22 H&P UPDATE INFORMATION: I have reviewed H&P completed within last 30 days, I have examined patient prior to procedure and No changes to prior documentation PREOP DIAGNOSIS: Desire permanent sterilization PLANNED PROCEDURE: Operation Date: 02/26/22 11:45 Proposed Procedures p Laparoscopic Salpingectomy(Bilateral) - Melecio Keenan MD
[2022-02-26 10:38] LABS: OR HCG Qualitative Urine Negative (Negative)
[2022-02-26] MEDS: sodium chloride 0.9% 500 ML IV (10:41)
[2022-02-26] MEDS: sodium chloride 0.9% 1,000 ML 30 ML IV (10:41)
[2022-02-26] MEDS: scopolamine 1.5 Patch 1 PATCH TRANSDERMA (10:44)
[2022-02-26] MEDS: ceFAZolin 2,000 MG in sodium chloride 0.9% (plus) 50 ML 100 MG IV (12:27)
--- NOTE | 2022-02-26 13:19 | P.OP_ITS ---
Operative Report Date of procedure: February 26, 2022 Pre-op diagnosis: Preop Diagnosis Desire permanent sterilization Post-op diagnosis: Same as above Procedure done: Laparoscopic bilateral salpingectomy Specimens removed/disposition: Left and right fallopian tube Surgeon: Melecio Keenan MD Estimated blood loss (mL): 5 IV fluids (mL): 400 Urine output (mL): 500 Procedure: After informed consent, the patient was taken to the operating room where gene ral anesthesia was administered. She was placed in the dorsal lithotomy position and prepped and draped in sterile fashion. Pre-Procedure Time-Out verifying the correct patient identity, correct procedure verified with consent, correct site and side, correct patient position, availability of correct implants and any special equipment or requirements was performed and acknowledge by the OR team. The patient was examined under anesthesia and found to have a normal uterus with normal adnexa. A weighted speculum was placed in the vagina, and the anterior lip of cervix was grasped with the single toothed tenaculum. A uterine manipulator was advanced into the endocervical canal and uterus. The tenaculum was removed after uterine manipulator was secured. The speculum was removed from the vagina. An intraumbilical incision was made with a scalpel. While tenting up on the abdomen, a Verres needle was admitted into the intra-abdominal cavity. A saline drop test was performed and noted to be within normal limits. Pneumoperitoneum was attained with 4 liters of carbon dioxide. The Verres needle was removed. A 5 mm Opitc view trocar and sleeve were admitted into the abdomen and laparoscopic confirmation of location was achieved. A second incision was made 3 cm above the symphysis pubis, and a 5 mm trocar sleeves were admitted into the abdomen under direct laparoscopic visualization without complication. A survey revealed normal abdominal anatomy . A 5 mm blunt probe was advanced through the second trocar sleeve, and light manipulation of ovaries and uterus to assess the posterior aspects was performed. The pelvic survey shows normal uterus, left and right adnexa. The left ovary was noted with a follicular cyst. The patient was placed into Trendelenburg position. The fallopian tubes were inspected bilaterally and the fimbriated ends of the fallopian tubes were visualized bilaterally. Attention was then directed to the right side. The fallopian tube and mesosalpinx were grasped and the underlying mesosalpinx was cauterized and cut using the Voyant device. Serial cauterization and cutting was used to separate the fallopian tube from the underlying mesosalpinx until it could be amputated cutting it approximated 2 cm from the cornua. Attention was then turned to the contralateral fallopian tube, which was removed in similar fashion. Both specimens were removed through the trocar and sent to pathology. The instruments were removed. The suprapubic trocar port was removed under direct visualization insuring good hemostasis. The carbon dioxide was allowed to escape from the abdomen. The intraumbilical trocar sleeve was withdrawn under visualization with laparoscope in the sleeve to insure hemostasis. The skin incisions were closed with 3-O Vicryl subcuticular stich and Dermabond. The instruments were removed from the vagina, and excellent hemostasis was noted. The patient tolerated the procedure well, and sponge, lap and needle count were correct times two. The patient was taken to the recovery room in good condition.
[2022-02-26] MEDS: HYDROmorphone 1 mg/mL INJ 1 mL 0.5 MG IVP ×2 (13:32→13:44)
--- NOTE | 2022-02-26 13:38 | P.PCN_ITS ---
PACU note Narrative: VSS, Good respiratory effort, report to RESEARCH AND DEVELOPMENT SPECIALIST Exam: awake
--- NOTE | 2022-02-26 13:38 | PM.PACU ---
PACU note Narrative: VSS, Good respiratory effort, report to [employer] INSTALLATION HELPER Exam: awake
[2022-02-26] MEDS: HYDROcodone-acetaminophen 5-325 mg Tablet 1 TAB PO (14:07)
--- NOTE | 2022-02-26 14:56 | ANE.PACU2 ---
Inpatient post-anesthesia follow up: Airway intact: Yes Vital signs: Temperature 98.0 F Pulse Rate 96 Respiratory Rate 16 Blood Pressure 138/91 Pulse Oximetry 100 Oxygen Delivery Me thod Room Air Oxygen Flow Rate Fraction of Inspir ed Oxygen Hydration adequate: Yes Nausea and vomiting: No Pain level: 3 Mental status: Baseline
== END 2022-02-26 14:38 | disposition home or self-care (01) ==
PROVIDERS: Anesthesiology; PCP Family Medicine; Visit Provider Obstetrics & Gynecology
PROC: (CPT 58661; principal; 2022-02-26 11:35)
DX: Z30.2 Encounter for sterilization (principal); J44.9 Chronic obstructive pulmonary disease, unspecified; Z86.19 Personal history of other infectious and parasitic diseases; F17.210 Nicotine dependence, cigarettes, uncomplicated
CPT/HCPCS: 58661; 36415; 80053; 81001; 81025; 84703; 85025; 86850; 86900; 88302; J0131; J0690; J1100; J1170; J2405; J2704; J3010; J3490; J7030; J7040

== ENCOUNTER → 2023-08-06 14:39 | Outpatient (BNVA) | payer BC, MEDICAID, SELFPAY | PROVIDERS: PCP Family Medicine; Visit Provider Nurse Practitioner Family | DX: J06.9 Acute upper respiratory infection, unspecified (principal) | CPT/HCPCS: 87400; 87880 ==

== ENCOUNTER 2023-08-07 08:20 | Emergency (ER) | payer BC, MEDICAID, SELFPAY ==
[2023-08-07 08:32] VITALS: BP 129/72; PULSE 84; RESP 18; TEMP 36.8; O2SAT 98
[2023-08-07 08:54] LABS: Rapid Strep A Test Negative (Negative)
--- NOTE | 2023-08-07 08:59 | W.ED.URI ---
HPI - URI/Sore Throat General: Chief Complaint: Upper Respiratory Infection Stated Complaint: sore throat, fever Time Seen by Provider: 08/07/23 08:28 History of Present Illness: Patient presents to the ER with complaints of cough sore throat and fever. Patient says feels like there is knives in her throat specifically on her left side. Patient does see white spots on her left side. Patient has had a fever 102 at home. Patient went to the urgent care yesterday they tested her for influenza and strep throat both which were negative but then they diagnosed her with influenza. Patient is only gotten worse she has been taking [id number] pain and fever relieving medicine. But present to the ER today for more evaluation and second opinion. Review of Systems General: Reports: 10 or more systems reviewed and unremarkable except in HPI and below PFSH ED PFSH: Medical History History of live X 2 Family History Father Diabetes Hyperlipidemia Hypertension Stroke Grandmother Diabetes maternal Mother Heart disease Denies family history of Colon cancer Ovarian cancer Clotting disorder Breast cancer Anesthesia complication Bleeding disorder Uterine cancer Thyroid disease Social History Smoking and tobacco/nicotine status: current every day tobacco/nicotine user (8 cigarettes per day ) Substance/Drug Use: current service: No Current gender identity: Female Physical Exam Const: COMMON NORMALS: no acute distress, average body habitus, patient oriented x3, no limitations, healthy appearing, alert and well nourished HENMT: COMMON NORMALS: normocephalic, atraumatic, hearing grossly normal bilaterally, external ears normal, EAC's normal, TM's normal bilaterally, Normal external nose present and moist oral mucous membranes; oropharynx not normal (White patches on the left tonsil, left tonsillar hypertrophy greater than t) HEAD & SCALP: normocephalic and atraumatic NOSE: Normal external nose present EXTERNAL EAR: Yes external ears normal EXTERNAL AUDITORY CANAL: EAC's normal TYMPANIC MEMBRANE: TM's normal bilaterally Eye: COMMON NORMALS: Equal, round and reactive pupils present, EOMs intact bilaterally, conjunctivae normal and no scleral icterus CONJUNCTIVA: Yes conjunctivae normal PUPIL: Yes Equal, round and reactive pupils present Neck/C-Spine: COMMON NORMALS: full ROM, supple, no meningeal signs and no JVD; negative for no lymphadenopathy (Left anterior cervical lymphadenopathy) Chest: COMMONS NORMALS: normal inspection of the chest and normal palpation of entire chest wall Resp: COMMON NORMALS: normal respiratory effort, No retractions, No use of accessory muscles and clear to auscultation bilaterally AUSCULTATION: clear to auscultation bilaterally Cardio: COMMON NORMALS: no JVD, regular rate, regular rhythm, S1 normal heart sound present, S2 normal heart sound present, No gallops present (Cardio), No clicks present (Cardio), No murmurs present (Cardio) and No rub (Cardio) RATE: regular rate RHYTHM: regular rhythm HEART SOUNDS: S1 normal heart sound present and S2 normal heart sound present GI: COMMON NORMALS: Normal to inspection, nondistended, normoactive bowel sounds present, Soft to palpation, non-tender, No hepatosplenomegaly present and no masses PALPATION: Yes Soft to palpation and Yes No hepatosplenomegaly present Neuro: COMMON NORMALS: patient oriented x3 SENSORIUM/ORIENTATION: Yes alert MENINGEAL SIGNS: Yes no meningeal signs Course Vital Signs: Vital signs: Vital Signs Temperature 98.2 F 08/07/23 08:32 Pulse Rate 84 08/07/23 08:32 Respiratory Rate 18 08/07/23 08:32 Blood Pressure 129/72 08/07/23 08:32 Pulse Oximetry 98 08/07/23 08:32 Oxygen Delivery Me thod Room Air 08/07/23 08:32 MDM - URI/Sore Throat Medical Decision Making Patient influenza and rapid strep which were both negative, respiratory panel is pending. We will call patient with any respiratory panel results. Patient be discharged home to follow-up with her PCP Differential Diagnosis Likely upper respiratory infection, viral infection and pharyngitis; Unlikely croup, otitis media, sinusitis, bronchitis or influenza Medical Records I reviewed the patient's medical records. Lab Data I reviewed the patient's lab results. Laboratory Results Adenovirus (PCR) Not detected (NOT DETECT) 08/07/23 09:27 C. pneumoniae DNA (PCR) Not detected (NOT DETECT) 08/07/23 09:27 Coronavirus 229E (PCR) Not detected (NOT DETECT) 08/07/23 09:27 Human Metapneumovir PCR Not detected (NOT DETECT) 08/07/23 09:27 Influenza A (H1) PCR Not detected (NOT DETECT) 08/07/23 09:27 Influ A (H1/09) PCR Not detected (NOT DETECT) 08/07/23 09:27 Influenza A (H3) PCR Not detected (NOT DETECT) 08/07/23 09:27 Influenza Type A Ag negative (Negative) 08/07/23 08:39 Influenza Type A (PCR) Not detected (NOT DETECT) 08/07/23 09:27 Influenza Type B Ag negative (Negative) 08/07/23 08:39 Influenza Type B (PCR) Not detected (NOT DETECT) 08/07/23 09:27 M. pneumoniae (PCR) Not detected (NOT DETECT) 08/07/23 09:27 Parainfluenza 1 (PCR) Not detected (NOT DETECT) 08/07/23 09:27 Parainfluenza 2 (PCR) Not detected (NOT DETECT) 08/07/23 09:27 Parainfluenza 3 (PCR) Not detected (NOT DETECT) 08/07/23 09:27 Parainfluenza 4 (PCR) Not detected (NOT DETECT) 08/07/23 09:27 RSV Type A (PCR) Not detected (NOT DETECT) 08/07/23 09:27 RSV Type B (PCR) Not detected (NOT DETECT) 08/07/23 09:27 Entero/Rhino (PCR) Not detected (NOT DETECT) 08/07/23 09:27 SARS-CoV-2 (PCR) Not detected (NOT DETECT) 08/07/23 09:27 Group A Strep Rapid Negative (Negative) 08/07/23 08:39 No radiology studies performed this visit Discharge Plan Discharge Patient Disposition: Home Clinical Impression: Pharyngitis Qualifiers: Pharyngitis/tonsillitis etiology: unspecified etiology Qualified Code(s): J02.9 - Acute pharyngitis, unspecified Condition: Stable Prescriptions: No Action ibuprofen 800 mg tablet 800 mg PO TID PRN (Reason: pain) Qty: 60 0RF acetaminophen 325 mg capsule 325 mg PO Q4H PRN (Reason: fever or pain) Qty: 60 0RF Discharge Orders: Discharge ED (Routine); Ordered 08/07/23 Ordered By: Jr Alfonso Referrals: Steffen Voss MD [Primary Care Provider] - 1 week Patient Instructions: Pharyngitis (ED) Activity Restrictions/Additional Instructions: Your evaluation in the ER revealed influenza negative, strep throat negative, your respiratory panel is still pending. You will be called with any positive results. Otherwise please follow-up with your family practice physician within the next 7 days for further evaluation and treatment. Coding Level of Care Code ED Institutional Asset Manager for [facility] Justice
[2023-08-07 09:01] LABS: Influenza A by IFA negative (Negative); Influenza B by IFA negative (Negative)
[2023-08-07 11:24] LABS: Adenovirus Not Detected (NOT DETECT); Chlamydia Pneumoniae Not Detected (NOT DETECT); Coronavirus 229E,HKU1,NL63,OC4 Not Detected (NOT DETECT); Human Metapneumovirus Not Detected (NOT DETECT); Human Rhinovirus/Enterovirus Not Detected (NOT DETECT); Influenza A Not Detected (NOT DETECT); Influenza A H1 Not Detected (NOT DETECT); Influenza A H1-2009 Not Detected (NOT DETECT); Influenza A H3 Not Detected (NOT DETECT); Influenza B Not Detected (NOT DETECT); Mycoplasma Pneumoniae Not Detected (NOT DETECT); Parainfluenza Virus Type 1 Not Detected (NOT DETECT); Parainfluenza Virus Type 2 Not Detected (NOT DETECT); Parainfluenza Virus Type 3 Not Detected (NOT DETECT); Parainfluenza Virus Type 4 Not Detected (NOT DETECT); Respiratory Syncytial Virus A Not Detected (NOT DETECT); Respiratory Syncytial Virus B Not Detected (NOT DETECT); SARS-COV-2 Not Detected (NOT DETECT)
== END 2023-08-07 09:47 | disposition home or self-care (01) ==
PROVIDERS: Emergency Provider Emergency Medicine; PCP Family Medicine
DX: J02.9 Acute pharyngitis, unspecified (principal); Z11.52 Encounter for screening for COVID-19; F17.210 Nicotine dependence, cigarettes, uncomplicated
CPT/HCPCS: 87081; 87486; 87581; 87633; 87804; 87880; 99283

== ENCOUNTER 2025-01-12 13:22 | Emergency (ER) | payer BC, MEDICAID, SELFPAY ==
--- NOTE | 2025-01-12 13:24 | XR_ITS ---
WS: [id number] Exam: XR shoulder LT min 2V* [id number] Date/Time of Exam: 01/12/2025 1:25 PM Reason For Exam: pain DLP: No fracture. The joints are preserved. Normal soft tissues. XR/XR shoulder LT min 2V* [id number] IMPRESSION: 1. Normal LEFT shoulder.
[2025-01-12 13:26] VITALS: BP 133/81; PULSE 88; RESP 18; O2SAT 98
--- NOTE | 2025-01-12 13:26 | ED_ITS ---
HPI - General Adult General: Chief complaint: Extremity Injury, Upper Stated complaint: LT shoulder pain Time Seen by Provider: 01/12/25 13:24 History of Present Illness: 34-year-old female presents emergency ro om left shoulder pain she has had for a week it radiates down her left arm at times. She states it helps when she stretches her left arm she had tried to stretch it with a resistance band but now it is increased. Pain does come across the upper trapezius muscle as well. No recent trauma or injury or fall or particular neck injury. No weakness in the arm. Associated symptoms: Deny chest pain, dyspnea or rash Related Data Previous Rx's ?Medication ?Instructions ?Recorded methylprednisolone 4 mg tablets in See Rx Instructions PO .COMPLEX 01/12/25 a dose pack (Medrol (Paul)) #21 ea tizanidine 4 mg tablet 4 mg PO Q6H PRN muscle spast icity 01/12/25 #20 tabs Allergies Allergy/AdvReac Type Severity Reaction Status Date / Time No Known Allergies Allergy Verified 08/07/23 08:36 Review of Systems Const: Denies: fever(s) or chills Card: Denies: chest pain Resp: Denies: dyspnea GI: Denies: abdominal pain : Denies: dysuria, urinary frequency or urinary urgency Musc: Reports: neck pain and extremity pain; Denies: back pain Skin/Breast: Denies: rash PFSH ED PFSH: Medical History History of live X 2 Family History Father Diabetes Hyperlipidemia Hypertension Stroke Grandmother Diabetes maternal Mother Heart disease Denies family history of Colon cancer Ovarian cancer Clotting disorder Breast cancer Anesthesia complication Bleeding disorder Uterine cancer Thyroid disease Social History Smoking and tobacco/nicotine status: current every day tobacco/nicotine user (8 cigarettes per day ) Substance/Drug Use: current service: No Current gender identity: Female Physical Exam Const: GENERAL APPEARANCE: cooperative ORIENTATION/CONSCIOUSNESS: Yes awake, Yes oriented to person, Yes oriented to place and Yes oriented to time HENMT: COMMON NORMALS: normocephalic, atraumatic and hearing grossly normal bilaterally HEAD & SCALP: normocephalic and atraumatic Resp: COMMON NORMALS: normal respiratory effort, No retractions, No use of accessory muscles and clear to auscultation bilaterally AUSCULTATION: clear to auscultation bilaterally Cardio: COMMON NORMALS: regular rate, regular rhythm and No murmurs present (Cardio) RATE: regular rate RHYTHM: regular rhythm Extremity: COMMON NORMALS: normal to inspection, capillary refill normal, no clubbing, cyanosis or edema, no calf tenderness and no pedal edema Neuro: SENSORIUM/ORIENTATION: Yes oriented to person, Yes oriented to place and Yes oriented to time Skin: COMMON NORMALS: no rashes or lesions noted GENERAL SKIN EXAM: no rashes or lesions noted Course Vital Signs: Vital signs: Vital Signs Pulse Rate 88 01/12/25 13:26 Respiratory Rate 18 01/12/25 13:26 Blood Pressure 133/81 01/12/25 13:26 Pulse Oximetry 98 01/12/25 13:26 Oxygen Delivery Me thod Room Air 01/12/25 13:26 MDM - General Adult Medical Decision Making Exam unremarkable. Based on her symptom suspect she may have a cervical radiculopathy. Will start her on steroid taper and tizanidine. Will also set her up for follow-up with orthopedic spine surgery. X-ray of the neck and shoulder was unremarkable. Lab Data Radiology Impressions Shoulder X-Ray 01/12/25 13:24 IMPRESSION: 1. Normal LEFT shoulder. Cervical Spine X-Ray 01/12/25 13:35 IMPRESSION: 1. Negative C-spine study. All radiology interpretation(s) finalized by discharge Discharge Plan Discharge Patient Disposition: Home Clinical Impression: Cervical radicular pain Condition: Stable Prescriptions: New tizanidine 4 mg tablet 4 mg PO Q6H PRN (Reason: muscle spasticity) Qty: 20 0RF Rx Instructions: do not exceed 3 doses per 24 hrs methylprednisolone [Medrol (Paul)] 4 mg tablets,dose pack See Rx Instructions .ROUTE .COMPLEX Qty: 21 0RF Rx Instructions: orally per package directions Discharge Orders: Discharge ED (Routine); Ordered 01/12/25 Ordered By: Lennox Viera Discharge Diet: Usual diet Discharge Activity: Increase activity as tolerated Patient Instructions: Opioid Safety, Pain Management, Patient Portal & Reyes Instructions Activity Restrictions/Additional Instructions: Thank you for choosing [facility] for your healthcare needs today. It is very important that you follow up as instructed or that you return to the Emergency Department should you have concerns or if your condition changes or worsens in any way. Emergency department visits are focused on emergent conditions, in some cases you may require further evaluation on an outpatient basis. You were seen in the emergency room with complaints of left shoulder pain. X- rays of your shoulder and your neck were normal. Based on your description of pain and the pattern suspect you may have a cervical nerve impingement. Will start you on a steroid taper and gave you muscle relaxer. You can use ibuprofen or Aleve along with this. Additionally will make an appointment for you to follow-up with orthopedic spine surgery (Please note that included in your discharge packet is information concerning o pioid safety and pain management. This information is given to all patients were discharged from the ER regardless of their discharge diagnosis or the medicines they usually take or are prescribed.) Print Language: Czech Coding Level of Care Code ED Hearing Aid Technician for [facility] Fernando Justice
--- NOTE | 2025-01-12 13:35 | XR_ITS ---
WS: [id number] Exam: XR cervical spine 3V* [id number] Date/Time of Exam: 01/12/2025 1:35 PM Reason For Exam: Pain DLP: No acute fracture. Disc spaces are preserved. Posterior elements are intact. Normal paraspinal soft tissues. The dens appears normal. XR/XR cervical spine 3V* [id number] IMPRESSION: 1. Negative C-spine study.
[2025-01-12] MEDS: methylPREDNISolone sod succ 125 mg/2 mL INJ IVP (13:45)
--- NOTE | 2025-01-13 08:07 | DCPLANNER ---
messaged ortho for er f/u
== END 2025-01-12 14:16 | disposition home or self-care (01) ==
PROVIDERS: Emergency Provider Family Medicine
DX: M54.12 Radiculopathy, cervical region (principal); F17.210 Nicotine dependence, cigarettes, uncomplicated
CPT/HCPCS: 72040; 73030; 96374; 96375; 99284; J1885; J2919

== ENCOUNTER → 2025-01-24 14:27 | Outpatient (BNVA) | payer BC, MEDICAID, SELFPAY | PROVIDERS: Visit Provider Orthopaedic Surgery | DX: M54.2 Cervicalgia (principal) | CPT/HCPCS: 72050 ==

== ENCOUNTER → 2025-02-01 08:44 | Outpatient (BNVA) | payer BC, MEDICAID, SELFPAY | PROVIDERS: PCP Family Medicine; Visit Provider Family Medicine | DX: D50.9 Iron deficiency anemia, unspecified (principal); Z13.6 Encounter for screening for cardiovascular disorders | CPT/HCPCS: 80053; 80061; 82728; 83550; 84439; 84443; 85025 ==

== ENCOUNTER 2025-03-13 08:42 | Outpatient (CLI) | payer BC, MEDICAID, SELFPAY ==
--- NOTE | 2025-03-13 08:45 | MR_ITS ---
WS: [id number] MRI CERVICAL SPINE NONCONTRAST TECHNIQUE: Sagittal T1, T2 and STIR imaging. Axial T2, gradient, and fiesta imaging. CLINICAL INFORMATION: cervicalgia COMPARISON: None. FINDINGS: Straightening of the normal cervical lordosis. Mild cervical curve. Disc bulging worse at C6-7. C2-C3: Normal. C3-C4: Mild disc bulging. Mild RIGHT foraminal narrowing. Mild facet arthropathy. C4-C5: Mild disc bulging. Mild RIGHT and no significant LEFT foraminal narrowing. Mild facet arthropathy. C5-C6: Mild disc bulge with endplate ridging. Mild facet arthropathy. Mild LEFT foraminal narrowing. C6-C7: Central protrusion with slight indentation on the cervical cord. Moderate bilateral foraminal narrowing RIGHT greater than LEFT. Mild central canal stenosis. Mild facet arthropathy. C7-T1: Normal. Visualized brain stem structures: Normal. Prevertebral soft tissues: Normal. MR/MR cervical spin wo con* [id number] IMPRESSION: 1. Straightening of the normal cervical lordosis. Disc bulging worse at C6-7. 2. Disc bulging C6-7 with slight indentation of the cervical cord and mild ce ntral canal stenosis. Moderate RIGHT greater than LEFT bony foraminal narrowing . 3. Mild RIGHT C4-5 foraminal narrowing. 4. Mild facet arthropathy C4-C5 and C5-C6.
== END 2025-03-13 08:43 | disposition home or self-care (01) ==
LOC: RAD 08:43
PROVIDERS: PCP Family Medicine; Visit Provider Orthopaedic Surgery
DX: M50.321 Other cervical disc degeneration at C4-C5 level (principal); R29.3 Abnormal posture; M40.202 Unspecified kyphosis, cervical region; M48.02 Spinal stenosis, cervical region; M50.223 Other cervical disc displacement at C6-C7 level; M47.892 Other spondylosis, cervical region
CPT/HCPCS: 72141

== ENCOUNTER 2025-04-11 19:39 | Inpatient (IN) | payer BC, MEDICAID, SELFPAY ==
[2025-04-11] VITALS (7 sets, daily range): BP systolic 109–137; BP diastolic 64–70; PULSE 79–95; RESP 16; TEMP 36.9; O2SAT 97–99; BMI 19.0
--- OUTSIDE RECORDS SUMMARY | 2025-04-11 19:44 | XMS_ITS | Continuity of Care Document ---
Author Organization TYREE - Jah Overton [facility] Maria Antonia, [place], [facility] ([facility]) Address [address] [facility] [place] [address] Assessment No assessment recorded. Plan of Treatment Reminders Order Date Submit Date Provider Last Modified By Organization Details Last Modified Time Details Appointments None recorded. Lab culture, urine 2024 025 [email or web address] [facility], [address] [place] [address], [facility] [address] [place], [address], 18:45:25 urinalysis, dipstick 2024 025 [email or web address] [facility] ([facility]), [address] [place], [address], 18:45:25 Referral None recorded. Procedures None recorded. Surgeries None recorded. Imaging None recorded. Medication Orders ciprofloxac in 500 mg tablet 2024 025 [facility] [place], [facility] [place], [address], 17:41:05 Patient TargetsNo targets recorded. Patient InstructionsNo instructions recorded. Reason for Referral None Reported. Results Created Date Observation Date Name Description Value Unit Range Abnormal Flag Note LastModifiedBy Organization Detail LastModifiedTime 04/10/2004/10/2025 urina lysis , dipst ick Leukocytes Small Not Available [facility] ([facility]) [address] [place], [address], 04/10/2025 15:37:55 04/10/20 25 04/10/2025 urina lysis , dipst ick Nitrite negati ve Not Available [facility] ([facility]) [address] [place], [address], 04/10/2025 15:37:55 04/10/20 25 04/10/2025 urina lysis , dipst ick Urobilinogen .2 Not Available [facility] ([facility]) [address] [place], [address], 04/10/2025 15:37:55 04/10/20 25 04/10/2025 urina lysis , dipst ick Protein 300 Not Available [facility] ([facility]) [address] [place], [address], 04/10/2025 15:37:55 04/10/20 25 04/10/2025 urina lysis , dipst ick pH 6.5 Not Available [facility] ([facility]) [address] [place], [address], 04/10/2025 15:37:55 04/10/20 25 04/10/2025 urina lysis , dipst ick Blood Non-He molyze d: Trace Not Available [facility] ([facility]) [address] [place], [address], 04/10/2025 15:37:55 04/10/20 25 04/10/2025 urina lysis , dipst ick Specific [place] 1.015 Not Available [facility] ( [facility]) [address] [place] [address], [address], 04/10/2025 15:37:55 04/10/20 25 04/10/2025 urina lysis , dipst ick Ketone Trace Not Available [facility] ([facility]) [address] [place], [address], 04/10/2025 15:37:55 04/10/20 25 04/10/2025 urina lysis , dipst ick Bilirubin Negati ve Not Available [facility] ([facility]) [address] [place], [address], 04/10/2025 15:37:55 04/10/20 25 04/10/2025 urina lysis , dipst ick Glucose Negati ve Not Available [facility] ([facility]) [address] [place], [address], 04/10/2025 15:37:55 04/10/20 25 04/10/2025 urina lysis , dipst ick Appearance Slight ly Cloudy Not Available [facility] ([facility]) [address] [place], [address], 04/10/2025 15:37:55 04/10/20 25 04/10/2025 urina lysis , dipst ick Color Yellow Not Available [facility] ([facility]) [address] [place], [address], 04/10/2025 15:37:55 Result Notes None recorded. Problems Name Problem SNOMED Code Status Onset Date Resolution Date Notes Provider Name and Address Organization Details Recorded Time Streptococcal sore throat 20687547 Active 2023 Avni Shoemaker MD [address] [place], [address] , [facility] 09:56:01 Problem Notes None recorded. Procedures Surgical History Date Name Laterality Status Provider Name and Address Organization Details Recorded Time Tubal Ligation completed Sienna Kerns [facility] 08/07/2023 11:41:35 Imaging Results None recorded. Procedure Notes None recorded. Medical Equipment None Reported. Allergies No known drug allergies Medications Name Sig Start Date Stop Date Status Note LastModified by Organization Details LastModified Time amoxicill in 500 mg capsule Take 1 capsule every 12 hours by oral route for 10 days. 11/17 completed Not Available Not Available Not Available nystatin 100,000 unit/mL oral suspensio n take 5ml BY MOUTH FOUR TIMES DAILY FOR 14 DAYS 04/18 completed Not Available Not Available Not Available venlafaxi ne ER 37.5 mg capsule,e xtended release 24 hr take 1 capsule BY MOUTH EVERY DAY active Not Available Not Available No t Available IBU 800 mg tablet Take 1 tablet 3 times a day by oral route. active Not Available Not Available No t Available tizanidin e 4 mg tablet TAKE 2 TABLETS BY MOUTH TWICE DAILY NEEDED FOR muscle spastici ty active Not Available Not Available No t Available hydrocodo ne 5 mg-acetam inophen 325 mg tablet TAKE 1 TABLET BY MOUTH EVERY 4-6 HOURS NEEDED 04/18 completed Not Available Not Available Not Available prednison e 20 mg tablet TAKE 3 TABLETS BY MOUTH EVERY DAY FOR THREE DAYS, THEN TWO EVERY DAY FOR TWO DAYS, THEN ONE EVERY DAY FOR TWO DAYS 04/10 completed Not Available Not Available Not Available topiramat e 25 mg tablet TAKE 1 TABLET BY MOUTH TWICE DAILY NEEDED FOR nerve pain active Not Available Not Available No t Available metronida zole 500 mg tablet Take 1 tablet every 8 hours by oral route. 03/31 completed Not Available Not Available Not Available ciproflox acin 500 mg tablet Take 1 tablet every 12 hours by oral route for 7 days. 2024 active Not Available Not Available Not Avai lable sulfameth oxazole 800 mg-trimet hoprim 160 mg tablet TAKE 1 TABLET BY MOUTH TWICE DAILY FOR 10 DAYS 04/18 completed Not Available Not Available Not Available Macrobid 100 mg capsule Take 1 capsule every 12 hours by oral route for 5 days. 11/29 completed Not Available Not Available Not Available Depo-Prov era 150 mg/mL intramusc ular suspensio n IM every 90 days 08/06 completed Not Available Not Available Not Available lidocaine HCl 2 % mucosal solution take 15ml BY MOUTH EVERY THREE HOURS NEEDED 04/18 completed Not Available Not Available Not Available methylpre dnisolone 4 mg tablets in a dose pack Take as directed on package for 6 days 04/10 completed Not Available Not Available Not Available naproxen 500 mg tablet TAKE 1 TABLET BY MOUTH TWICE DAILY FOR SEVEN DAYS 04/18 completed Not Available Not Available Not Available neomycin- polymyxin -hydrocor t 3.5 mg-10,000 unit/mL-1 % ear drops,steve p instill FOUR drops into affected ear(s) THREE TIMES DAILY FOR 7 DAYS 04/10 completed Not Available Not Available Not Available bupropion HCl XL 150 mg 24 hr tablet, extended release TAKE 1 TABLET BY MOUTH EVERY MORNING active Not Available Not Available No t Available Iron (Ferrous Gluconate ) 08/06 completed Not Available Not Available Not Available Iron (ferrous sulfate) 04/10 completed Not Available Not Available Not Available Wellbutri n SR 04/10 completed Not Available Not Available Not Available Topamax 04/10 completed Not Available Not Available Not Available Zanaflex 04/10 completed Not Available Not Available Not Available Vitamin daily 08/06 completed may substitu te any standard pnv. addition al iron is not needed; Not Available Not Available Not Available FeroSul 325 mg (65 mg iron) tablet TAKE 1 TABLET BY MOUTH every 48 hours FOR THREE MONTHS active Not Available Not Available No t Available Vitals Date Recorded Body height Body mass index (BMI) Body weight Oxygen saturation Heart rate Respiratory rate Body temperature Systolic And Diastolic Provider Name and Address Organization Details Last Updated DateTime 167.64 cm 18.7 kg/m2 60644.7 1 g 97 % 129 /min 16 /min 99.6 [degF] 128/80 mm[Hg] Concepción Pitts [facility] 15:44:11 Social History Question Answer Notes LastModified by Organizat ion Details LastModified Time Tobacco Smoking Status Never Smoker Sienna ashraf [facility] 08/07/2023 11:41:25 Which Illicit Or Recreational Drugs Have You Used? Marijuana Information not available 08/07/2023 What Was The Date Of Your Most Recent Tobacco Screening? 04/10/2025 Information not available 04/10/2025 Sex: Unknown Functional Status Question Answer Note LastModified by Organizat ion Details LastModified Time Do you use any illicit or recreational drugs? Yes Information not available 08/07/2023 Do you or have you ever used any other forms of tobacco or nicotine? Yes Information not available 08/07/2023 What is your level of alcohol consumption? None Information not available 08/07/2023 Do you or have you ever used e-cigarettes or vape? Current user of electronic cigarettes vape Information not available 04/10/2025 Mental Status None recorded. Family History Nothing Reported. Medical History Condition Response Coronary Artery Disease N Other N Gout N Kidney Stones N Blood Diseases N Hyperthyroidism N Breast Cancer N Blood Transfusion N Depression Y COPD N Lung Disease N Hypothyroidism N Developmental or Behavioral Disorders N Defects or Inherited Disease N Breast Problem N Difficulty Swallowing N Anesthesia Complications N Meniere's disease N Anxiety Disorder Y Muscle, Joint, or Bone Problems N Vision or Eye Problems N Arthritis N Polyps N Infertility N Cancer N Varicosities N Stroke N Endometriosis N Bladder or Kidney Problems N High Cholesterol N Liver Disease N Headaches N Fibromyalgia N Kidney Disease N Allergies/Hayfever N Heart Problems N Ear or Hearing Problems N Hospitalizations N Thyroid Problems N GI Problems N ADD/ADHD N Skin Problems N Eating Disorder N Anemia N Constipation N Mental Illness N Ovarian Cancer N Diabetes N Bedwetting N Seizures/Epilepsy N Tuberculosis N Eczema N Diverticulitis N Abuse/Domestic Violence N Asthma N Reflux/GERD N Hepatitis N Heart Disease N Pulmonary Embolism N Pre-Eclampsia N Hypertension N Chronic Ear Infections N Osteoporosis N Chicken Pox N Autism Spectrum Disorder (ASD) N Thrombophilias N Gynecological HistoryNo gynecological history recorded. Obstetrics History GPAL:G 0 P 0 0 0 0 Immunizations Vaccine Type Date Status Note Provider Nam e and Address Organization Details Recorded Time DTaP 3 completed Not Available [facility] 03/31/2025 09:09:00 OPV, trivalent 3 completed Not Available [facility] 03/31/2025 09:09:00 Hep B, unspecified formulation 3 completed Not Available [facility] 03/31/2025 09:09:00 Hep B, unspecified formulation 3 completed Not Available [facility] 03/31/2025 09:09:00 Hib (PRP-T) 3 completed Not Available [facility] 03/31/2025 09:09:00 DTaP-Hib 4 completed Not Available [facility] 03/31/2025 09:09:00 OPV, trivalent 4 completed Not Available [facility] 03/31/2025 09:09:00 Hep B, unspecified formulation 4 completed Not Available [facility] 03/31/2025 09:09:00 MMR 4 completed Not Available [facility] 03/31/2025 09:09:00 DTaP-Hib 5 completed Not Available [facility] 03/31/2025 09:09:00 OPV, trivalent 5 completed Not Available [facility] 03/31/2025 09:09:00 Hep B, unspecified formulation 5 completed Not Available [facility] 03/31/2025 09:09:00 DTaP 6 completed Not Available [facility] 03/31/2025 09:09:00 Hep B, unspecified formulation 6 completed Not Available [facility] 03/31/2025 09:09:00 Hib (PRP-T) 8 completed Not Available [facility] 03/31/2025 09:09:00 DTaP 8 completed Not Available [facility] 03/31/2025 09:09:00 OPV, trivalent 8 completed Not Available [facility] 03/31/2025 09:09:00 MMR 8 completed Not Available [facility] 03/31/2025 09:09:00 Hep A, ped/adol, 2 dose 5 completed Not Available [facility] 03/31/2025 09:09:00 Tdap 8 completed Not Available [facility] 03/31/2025 09:09:00 Hep A, ped/adol, 2 dose 8 completed Not Available [facility] 03/31/2025 09:09:00 HPV, quadrivalent 8 completed Not Available [facility] 03/31/2025 09:09:00 HPV, quadrivalent 8 completed Not Available [facility] 03/31/2025 09:09:00 HPV, quadrivalent 0 completed Not Available [facility] 03/31/2025 09:09:00 Tdap 9 completed Not Available [facility] 03/31/2025 09:09:00 Past Encounters Encounter ID Performer Location Encounter Start Date Encounter Closed Date Diagnosis/Indication Diagnosis SNOMED-CT Code Diagnosis ICD10 Code Diagnosis IMO Codes Diagnosis Note [id number] TOYA PAK APRN [facility] ([facility]) [address] [place] [address] 03/31/2025 09:07:29 03/31/2025 09:52:46 Acute otitis externa of left ear 8138423885 073741 H60.502 [id number] DEONDRE DEUTSCH PA-C [facility] ([facility]) [address] [place] [address] 04/10/2025 15:35:12 04/10/2025 16:18:59 Dysuria 60424492 R30.0 37150 Acute urin jennie tract infection 185239731 N39.0 083490 Health Concerns Section Related Observation LastModified by Organization Detai ls LastModified Time None Recorded Concern Status LastModified by Organization Details LastModified Time None Recorded Payers Encounter Date Sequence Insurance Name Policy Number Policy Bravo Covered Member ID Bravo Member ID Guarantor Name 04/10/2025 1 [employer] [place] [place] - [place] [id number] Cora Paredes [id number] Cora Paredes Notes Date Note Type Note Provider Name and Address Organization Details Recorded Time 04/10/2025 text/html Lower Urinary Tr act Symptoms (LUTS)Reported by Patient walk in patientpatient is here today for dark color urine, urine smells, lower right side back pain, that started last night DEONDRE DEUTSCH PA-C [address] [place] [address], [phone], [facility], [place] 04/10/2025 15:55:55 OBGyn Episode No OBEpisode recorded.
--- OUTSIDE RECORDS SUMMARY | 2025-04-11 19:44 | XMS_ITS | Data Portability ---
Author Organization [facility] Jah Overton [facility], Ming, [facility] Address [address] [place] [address] Assessment No assessment recorded. Plan of Treatment Reminders Order Date Submit Date Provider Last Modified By Organization Details Last Modified Time Details Appointments None recorded. Lab culture, urine 2024 025 [email or web address] [facility], [address] [place] [address], [address], [place], [address], 5 18:45:25 urinalysis, dipstick 2024 025 [email or web address] [facility] ([facility]), [address] [place], [address], 5 18:45:25 urinalysis, dipstick 2024 025 [email or web address] ([facility]), [address] [place], [address], 5 16:43:01 culture, urine 2024 025 VINOD [facility], [address] [place] [address], [address], [place], [address], 5 12:13:50 rapid strep group A, throat 2023 024 [email or web address] [facility] ([facility]), [address] [place] [address], [address], 10:02:10 Referral None recorded. Procedures None recorded. Surgeries None recorded. Imaging None recorded. Medication Orders ciprofloxac in 500 mg tablet 2024 [facility], [address] [place] [address], [address], 5 17:41:05 neomycin-po lymyxin-hyd rocort 3.5 mg-10,000 unit/mL-1 % ear drops,susp [address], [address], 5 15:47:41 Macrobid 100 mg capsule [address], [address], 5 05:01:20 amoxicillin 500 mg capsule 2023 [facility], [address] [place] [address], [address], 5 16:00:05 nystatin 100,000 unit/mL oral suspension [address], [address], 4 11:13:35 amoxicillin 500 mg capsule [email or web address] [place] [address], [address] [place] [address], [address], 5 15:48:36 Lidocaine Viscous 2 % mucosal solution [address], [address], 4 11:13:32 naproxen 500 mg tablet 202330 024 [facility] [place], [address] [place], [address], 11:13:33 Patient TargetsNo targets recorded. Patient Instructions Encounter Date Encounter Id Patient Instructions Last Modified By Organization Details Last Modified Time 03/31/2025 [id number] Follow up for worsening [email or web address] Not available 03/31/2025 09:41:59 Reason for Referral None Reported. Results Created Date Observation Date Name Description Value Unit Range Abnormal Flag Note LastModifiedBy Organization Detail LastModifiedTime 04/18/20 24 04/18/2024 rapid strep group A, throa t Strep positi ve Not Available [facility] ([facility]) [address] [place], [address], 04/18/2024 09:46:41 11/18/19 25 11/19/2024 CULTU RE, URINE , ROUTI NE culture, urine, routine SEE NOTE abnormal CULTU RE, URINE , ROUTI NE Micro Numbe r: [id number] Test Statu s: Final Speci men Sourc e: Urine , clean catch Speci men Quali ty: Adequ ate Resul t: Great er than 100,0 00 CFU/m L of Esche kacey a coli E.col i ----- ----- ----- - INT NATHANAEL AMOX/ CLAVU LANAT E S <=2 AMP/S ULBAC EISENBERG S <=2 CEFAZ ONOFRE NR <=1 2 CEFEP SANJUANITA S <=0.1 2 CEFTA ZIDIM E S <=0.5 CEFTR IAXON E S <=0.2 5 CIPRO FLOXA AMY S <=0.0 6 GENTA MICIN S <= 1 IMIPE NEM S <=0.2 5 LEVOF LOXAC IN S <=0.1 2 MEROP ENEM S <=0.2 5 NITRO FURAN TOIN S 32 PIP/T AZOBA CTAM S <=4 TRIME THOPR IM/LYNN LFA S <=20 S = Susce ptibl e I = Inter media te R = Resis tant NS = Not susce ptibl e SDD = Susce ptibl e Dose Depen dent * = Not Teste d NR = Not Repor maksim NN = See Thera py Comme nts THERA PY COMME NTS Note 1: For infec tions other than uncom plica maksim UTI cause d by E. coli, K. pneum oniae or P. mirab ilis: Cefaz onofre is resis tant if NATHANAEL > or = 8 mcg/m L. (Dist ingui shing susce ptibl e versu s inter media te for isola heather with NATHANAEL < or = 4 mcg/m L requi res addit ional testi ng.) Note 2: For uncom plica maksim UTI cause d by E. coli, K. pneum oniae or P. mirab ilis: Cefaz onofre is susce ptibl e if NATHANAEL <32 mcg/m L and predi cts susce ptibl e to the oral agent s cefac alee, cefdi hua, cefpo doxim e, cefpr ozil, cefur oxime , cepha lexin and lorac arbef . Not Available [facility] [address] [place], [address], 11/19/2024 12:13:50 11/18/19 25 11/17/2024 urina lysis , dipst ick Leukocytes Large Not Available [facility] ([facility]) [address] [place] [address], [address], 11/17/2024 15:48:06 11/18/19 25 11/17/2024 urina lysis , dipst ick Nitrite negati ve Not Available [facility] ([facility]) [address] [place], [address], 11/17/2024 15:48:06 11/18/19 25 11/17/2024 urina lysis , dipst ick Urobilinogen .2 Not Available [facility] ([facility]) [address] [place], [address], 11/17/2024 15:48:06 11/18/19 25 11/17/2024 urina lysis , dipst ick Protein 100 Not Available [facility] ([facility]) [address] [place], [address], 11/17/2024 15:48:06 11/18/19 25 11/17/2024 urina lysis , dipst ick pH 5.5 Not Available [facility] ([facility]) [address] [place], [address], 11/17/2024 15:48:06 11/18/1911/17/2024 urina lysis , dipst ick Blood Large Not Available [facility] ([facility]) [address] [place], [address], 11/17/2024 15:48:06 11/18/19 25 11/17/2024 urina lysis , dipst ick Specific Midkiff 1.015 Not Available [facility] ( [facility]) [address] [place], [address], 11/17/2024 15:48:06 11/18/19 25 11/17/2024 urina lysis , dipst ick Ketone Negati ve Not Available [facility] ([facility]) [address] [place], [address], 11/17/2024 15:48:06 11/18/1911/17/2024 urina lysis , dipst ick Bilirubin Negati ve Not Available [facility] ([facility]) [address] [place], [address], 11/17/2024 15:48:06 11/18/19 25 11/17/2024 urina lysis , dipst ick Glucose Negati ve Not Available [facility] ([facility]) [address] [place], [address], 11/17/2024 15:48:06 11/18/19 25 11/17/2024 urina lysis , dipst ick Appearance Cloudy Not Available [facility] ([facility]) [address] [place], [address], 11/17/2024 15:48:06 11/18/19 25 11/17/2024 urina lysis , dipst ick Color Yellow Not Available [facility] ([facility]) [address] [place], [address], 11/17/2024 15:48:06 04/10/20 25 04/10/2025 urina lysis , dipst ick Leukocytes Small Not Available [facility] ([facility]) [address] [place], [address], 04/10/2025 15:37:55 04/10/20 25 04/10/2025 urina lysis , dipst ick Nitrite negati ve Not Available [facility] ([facility]) [address] [place], [address], 04/10/2025 15:37:55 04/10/20 25 04/10/2025 urina lysis , dipst ick Urobilinogen .2 Not Available [facility] ([facility]) [address] [place], [address], 04/10/2025 15:37:55 04/10/20 25 04/10/2025 urina lysis , dipst ick Protein 300 Not Available [facility] ([facility]) [address] [place], [address], 04/10/2025 15:37:55 04/10/20 25 04/10/2025 urina lysis , dipst ick pH 6.5 Not Available [facility] ([facility]) [address] [place], [address], 04/10/2025 15:37:55 04/10/20 25 04/10/2025 urina lysis , dipst ick Blood Non-He molyze d: Trace Not Available [facility] ([facility]) [address] [place], [address], 04/10/2025 15:37:55 04/10/20 25 04/10/2025 urina lysis , dipst ick Specific Midkiff 1.015 Not Available [facility] ( [facility]) [address] [place], [address], 04/10/2025 15:37:55 04/10/20 25 04/10/2025 urina lysis , dipst ick Ketone Trace Not Available [facility] ([facility]) [address] [place], [address], 04/10/2025 15:37:55 04/10/20 25 04/10/2025 urina lysis , dipst ick Bilirubin Negati ve Not Available [facility] ([facility]) [address] [place], [address], 04/10/2025 15:37:55 04/10/20 25 04/10/2025 urina lysis , dipst ick Glucose Negati ve Not Available [facility] ([facility]) [address] [place], [address], 04/10/2025 15:37:55 04/10/20 25 04/10/2025 urina lysis , dipst ick Appearance Slight ly Cloudy Not Available [facility] ([facility]) [address] [place], [address], 04/10/2025 15:37:55 04/10/20 25 04/10/2025 urina lysis , dipst ick Color Yellow Not Available [facility] ([facility]) [address] [place], [address], 04/10/2025 15:37:55 Result Notes None recorded. Problems Name Problem SNOMED Code Status Onset Date Resolution Date Notes Provider Name and Address Organization Details Recorded Time Streptococcal sore throat 25016782 Active 2023 Avni Shoemaker MD [address] [place], [address], [facility] Problem Notes None recorded. Procedures Surgical History Date Name Laterality Status Provider Name and Address Organization Details Recorded Time Tubal [facility] 11:41:35 Imaging Results None recorded. Procedure [...] and Address Organization Details Last Updated DateTime 4 167.64 cm 18.9 kg/m2 27472.7 4 g 99 % 89 /min 16 /min 98 [degF] 106/68 mm[Hg] Sienna Richter [facility] 4 11:48:34 Date Recorded Body height Body mass index (BMI) Body weight Respiratory rate Oxygen saturation Heart rate Body temperature Systolic And Diastolic Provider Name and Address Organization Details Last Updated DateTime 5 167.64 cm 17.9 kg/m2 46498.4 5 g 17 /min 98 % 72 /min 98.4 [degF] 122/84 mm[Hg] ORLANDO CHOW [facility] 5 15:48:11 Date Recorded Body height Body mass index (BMI) Body weight Oxygen saturation Heart rate Body temperature Systolic And Diastolic Provider Name and Address Organization Details Last Updated DateTime 5 167.64 cm 18.9 kg/m2 54857.0 1 g 99 % 88 /min 97.8 [degF] 112/62 mm[Hg] Griselda Godfrey [facility] 5 09:15:03 Date Recorded Body height Body mass index (BMI) Body weight Oxygen saturation Heart rate Respiratory rate Body temperature Systolic And Diastolic Provider Name and Address Organization Details Last Updated DateTime 5 167.64 cm 18.7 kg/m2 99491.7 1 g 97 % 129 /min 16 /min 99.6 [degF] 128/80 mm[Hg] Concepción Gumarojoshua [facility] 5 15:44:11 Date Recorded Body height Body mass index (BMI) Body weight Oxygen saturation Heart rate Respiratory rate Body temperature Systolic And Diastolic Provider Name and Address Organization Details Last Updated DateTime 4 167.64 cm 18.1 kg/m2 11069.0 6 g 98 % 78 /min 18 /min 98.3 [degF] 112/60 mm[Hg] María Elena Carrasquillo [facility] 09:43:32 Social History Question Answer Notes LastModified by Organizat ion Details LastModified Time Tobacco Smoking Status Never Smoker Sienna ashraf [facility] 08/07/2023 11:41:25 Which Illicit Or Recreational [...] Recorded Time DTaP 3 completed Not Available [facility] 03/31/2025 09:09:00 OPV, trivalent 3 completed Not Available [facility] 03/31/2025 09:09:00 Hep B, unspecified formulation 3 completed Not Available [facility] 03/31/2025 09:09:00 Hep B, unspecified formulation 3 completed Not Available [facility] 03/31/2025 09:09:00 Hib (PRP-T) 3 completed Not Available [facility] 03/31/2025 09:09:00 DTaP-Hib 4 completed Not Available [facility] 03/31/2025 09:09:00 OPV, trivalent 4 completed Not Available [facility] 03/31/2025 09:09:00 Hep B, unspecified formulation 4 completed Not Available [facility] 03/31/2025 09:09:00 MMR 4 completed Not Available [facility] 03/31/2025 09:09:00 DTaP-Hib 5 completed Not Available [facility] 03/31/2025 09:09:00 OPV, trivalent 5 completed Not Available [facility] 03/31/2025 09:09:00 Hep B, unspecified formulation 5 completed Not Available [facility] 03/31/2025 09:09:00 DTaP 6 completed Not Available [facility] 03/31/2025 09:09:00 Hep B, unspecified formulation 6 completed Not Available [facility] 03/31/2025 09:09:00 Hib (PRP-T) 8 completed Not Available [facility] 03/31/2025 09:09:00 DTaP 8 completed Not Available [facility] 03/31/2025 09:09:00 OPV, trivalent 8 completed Not Available [facility] 03/31/2025 09:09:00 MMR 8 completed Not Available [facility] 03/31/2025 09:09:00 Hep A, ped/adol, 2 dose 5 completed Not Available [facility] 03/31/2025 09:09:00 Tdap 8 completed Not Available [facility] 03/31/2025 09:09:00 Hep A, ped/adol, 2 dose 8 completed Not Available [facility] 03/31/2025 09:09:00 HPV, quadrivalent 8 completed Not Available [facility] 03/31/2025 09:09:00 HPV, quadrivalent 8 completed Not Available [facility] 03/31/2025 09:09:00 HPV, quadrivalent 0 completed Not Available [facility] 03/31/2025 09:09:00 Tdap 9 completed Not Available [facility] 03/31/2025 09:09:00 Past Encounters Encounter ID Performer Location Encounter Start Date Encounter Closed Date Diagnosis/Indication Diagnosis SNOMED-CT Code Diagnosis ICD10 Code Diagnosis IMO Codes Diagnosis Note [id number] DEONDRE DEUTSCH PA-C [facility] ([facility]) [address] [place] [address] 08/07/2023 11:25:05 08/07/2023 13:11:18 Candidiasis of mouth 80067967 B37.0 Acute pharyngitis 581474 003 J02.9 [id number] Avni Shoemaker MD [facility] ([facility]) [address] [place] [address] 04/18/2024 09:36:34 04/18/2024 09:58:36 Sore throat 912790290 J02.9 Streptococ monica sore throat 58966676 J02.0 Postive strep test. start abx. discussed symptom management and recommende d precaution s. f/u if sx do not improve [id number] DOLORES DELANEY [facility] ([facility]) [address] [place] [address] 11/17/2024 15:41:13 11/17/2024 16:05:54 Dysuria 04986379 R30.0 87277 UA results reviewed and discussed with pt. We will start antibiotic s. Pt will increase oral fluids and can use cranberry. Return to office with no improvemen t or any problems. Go to ER with severe worsening or severe problems.W e will obtain urine culture [id number] TOYA PAK APRN [facility] ([facility]) [address] [place] [phone] 03/31/2025 09:07:29 03/31/2025 09:52:46 Acute otitis externa of left ear 6517150467 957745 H60.502 [id number] DEONDRE DEUTSCH PA-C [facility] ([facility]) [address] [place] [address] 04/10/2025 15:35:12 04/10/2025 16:18:59 Dysuria 95297170 R30.0 77588 Acute urin jennie tract infection 706502022 N39.0 [id number] Health Concerns Section Related Observation LastModified by Organization Detai ls LastModified Time None Recorded Concern Status LastModified by Organization Details LastModified Time None Recorded Advance Directives Directive None Recorded Payers Insurance Date Sequence Insurance Name Policy Number Policy Bravo Covered Member ID Bravo Member ID Guarantor Name 04/10/2025 1 [employer] [place] [place] (MEDICAID REPLACEMENT - HMO) [id number] Cora Paredes [id number] Cora Paredes Notes Date Note Type Note Provider Name and Address Organization Details Recorded Time 08/07/2023 text/html Sore ThroatRepor maksim by PatientHPIFor quality, patient reportsdifficulty swallowing,sharp, andpressure. For severity, patient reportsworseningandsev ere. For associated symptoms, patient reportsfever (102 yesterday),swollen glands,appetite loss, andheadachebut reportsno cough,no nausea, andno vomiting. For location, patient reportsleft side. For onset/timing, patient reportsdate of onset 3 days agoandsudden. For duration, patient reportsstarted 3 day(s) ago. For context, patient reportsno one else with similar symptoms. For alleviating factors, patient reportsnothing gives reliefandnsaids.ROS as noted in the HPI Patient reports symptoms starting 3 days ago. Symptoms sore throat, left side of face throat and neck, inability to swallow, inability to eat. Denies having a tooth bothering her. Has been tested for strep and flu recently and the tests were negative. White patches on tonsils and puss on tonsils. Swabbed today at the ER and yesterday at urgent care. Has taken 800mg ibuprofen with minimal relief. said 'you have the flu even though you are negative. ER ran a respiratory panel and said no infection. DEONDRE DEUTSCH PA-C [address] [place], [address], [facility] 08/19/2023 14:07:39 04/18/2024 text/html Sore ThroatRepor maksim by PatientROS as noted in the HPI walk in patientsore throat starting yesterday. Avni Shoemaker MD [address] [place], [address], [facility] 04/18/2024 09:57:58 11/17/2024 text/html ROS as noted in the HPI walk-in; no PCP Patient states she woke up in the middle of the night with horrible lower back pain and abdominal pain. She's having lower abdominal cramping and burning with urination. just finished a week of metro for a BV infection. DOLORES DELANEY [address] [place], [address], [facility] 11/17/2024 16:05:05 03/31/2025 text/html walk inx2 days left ear pain TOYA PAK APRN [address] [place], [address], [facility] 03/31/2025 09:42:12 04/10/2025 text/html Lower Urinary Tr act Symptoms (LUTS)Reported by Patient walk in patientpatient is here today for dark color urine, urine smells, lower right side back pain, that started last night DEONDRE DEUTSCH PA-C [address] [place], [address], [facility] - [facility], Ming 04/10/2025 15:55:55 OBGyn Episode No OBEpisode recorded.
--- OUTSIDE RECORDS SUMMARY | 2025-04-11 19:44 | XMS_ITS | Continuity of Care Document ---
Author Organization [facility] Ming Em, [facility] ([facility]) Address [address] [facility] [place] [address] Assessment No assessment recorded. Plan of Treatment Reminders Order Date Submit Date Provider Last Modified By Organization Details Last Modified Time Details Appointments None record ed. Lab None record ed. Referral None record ed. Procedures None record ed. Surgeries None record ed. Imaging None record ed. Medication Orders neomyc in-radha ymyxin -hydro tami 3.5 mg-10, 000 unit/m L-1 % ear drops, susp 025 04/10/20 25 [facility] [place], [address] [place], [address], 15:47:41 Patient TargetsNo targets recorded. Patient Instructions Encounter Date Encounter Id Patient Instructions Last Modified By Organization Details Last Modified Time 03/31/2025 [id number] Follow up for worsening [email or web address] Not available 03/31/2025 09:41:59 Reason for Referral None Reported. Problems Name Problem SNOMED Code Status Onset Date Resolution Date Notes Provider Name and Address Organization Details Recorded Time Streptococcal sore throat 40586755 Active 2023 Avni Shoemaker MD [address] [place] [address], [address], [facility] Problem Notes None recorded. Procedures Surgical History Date Name Laterality Status Provider Name and Address Organization Details Recorded Time Tubal [facility]/07/20[facility] 11:41:35 Imaging Results None recorded. [...] Updated DateTime 5 167.64 cm 18.9 kg/m2 80945.0 1 g 99 % 88 /min 97.8 [degF] 112/62 mm[Hg] Griselda Donahue [facility] 09:15:03 Social History Question Answer Notes LastModified by Organizat ion Details LastModified Time Tobacco Smoking Status Never Smoker Sienna ashraf [facility] 08/07/2023 11:41:25 Which Illicit Or Recreational Drugs [...] Recorded Time DTaP 3 completed Not Available [facility] 03/31/2025 09:09:00 OPV, trivalent 3 completed Not Available [facility] 03/31/2025 09:09:00 Hep B, unspecified formulation 3 completed Not Available [facility] 03/31/2025 09:09:00 Hep B, unspecified formulation 3 completed Not Available [facility] 03/31/2025 09:09:00 Hib (PRP-T) 3 completed Not Available [facility] 03/31/2025 09:09:00 DTaP-Hib 4 completed Not Available [facility] 03/31/2025 09:09:00 OPV, trivalent 4 completed Not Available [facility] 03/31/2025 09:09:00 Hep B, unspecified formulation 4 completed Not Available [facility] 03/31/2025 09:09:00 MMR 4 completed Not Available [facility] 03/31/2025 09:09:00 DTaP-Hib 5 completed Not Available [facility] 03/31/2025 09:09:00 OPV, trivalent 5 completed Not Available [facility] 03/31/2025 09:09:00 Hep B, unspecified formulation 5 completed Not Available [facility] 03/31/2025 09:09:00 DTaP 6 completed Not Available [facility] 03/31/2025 09:09:00 Hep B, unspecified formulation 6 completed Not Available [facility] 03/31/2025 09:09:00 Hib (PRP-T) 8 completed Not Available [facility] 03/31/2025 09:09:00 DTaP 8 completed Not Available [facility] 03/31/2025 09:09:00 OPV, trivalent 8 completed Not Available [facility] 03/31/2025 09:09:00 MMR 8 completed Not Available [facility] 03/31/2025 09:09:00 Hep A, ped/adol, 2 dose 5 completed Not Available [facility] 03/31/2025 09:09:00 Tdap 8 completed Not Available [facility] 03/31/2025 09:09:00 Hep A, ped/adol, 2 dose 8 completed Not Available [facility] 03/31/2025 09:09:00 HPV, quadrivalent 8 completed Not Available [facility] 03/31/2025 09:09:00 HPV, quadrivalent 8 completed Not Available [facility] 03/31/2025 09:09:00 HPV, quadrivalent 0 completed Not Available [facility] 03/31/2025 09:09:00 Tdap 9 completed Not Available [facility] 03/31/2025 09:09:00 Past Encounters Encounter ID Performer Location Encounter Start Date Encounter Closed Date Diagnosis/Indication Diagnosis SNOMED-CT Code Diagnosis ICD10 Code Diagnosis IMO Codes Diagnosis Note [id number] TOYA PAK APRN [facility] ([facility]) [address] [place] [address] 03/31/2025 09:07:29 03/31/2025 09:52:46 Acute otitis externa of left ear 0811908348 623255 H60.502 [id number] Health Concerns Section Related Observation LastModified by Organization Detai ls LastModified Time None Recorded Concern Status LastModified by Organization Details LastModified Time None Recorded Payers Encounter Date Sequence Insurance Name Policy Number Policy Bravo Covered Member ID Bravo Member ID Guarantor Name 03/31/2025 1 [employer] [place] ([place]AC[place] - HMO) [id number] Cora Paredes [id number] Cora Paredes Notes Date Note Type Note Provider Name and Address Organization Details Recorded Time 03/31/2025 text/html walk inx2 days left ear pain TOYA PAK APRN [address] [place] [address], [address], [facility] 03/31/2025 09:42:12 OBGyn Episode No OBEpisode recorded.
[2025-04-11 20:22] LABS: Glucose Urine UA Negative (Normal); Nitrate Urine Positive (Negative); Specific Gravity, Urine 1.021 (1.005-1.030)
--- NOTE | 2025-04-11 20:23 | CTR_ITS ---
PROCEDURE INFORMATION: Exam: CT Abdomen And Pelvis With Contrast Exam date and time: 04/11/2025 9:03 PM Age: 34 years old Clinical indication: Abdominal pain; Additional info: Severe rlq pain, n/v TECHNIQUE: Imaging protocol: Computed tomography of the abdomen and pelvis with contrast. Radiation optimization: All CT scans at this facility use at least one of these dose optimization techniques: automated exposure control; mA and/or kV adjustment per patient size (includes targeted exams where dose is matched to clinical indication); or iterative reconstruction. Contrast material: OMNI 350; Contrast volume: 100 ml; Contrast route: INTRAVENOUS (IV); COMPARISON: ES surgery / GI images 02/26/2022 1:13 PM RADIATION DOSE METRICS: Total DLP (mGy-cm): 620.91 FINDINGS: Liver: Hepatomegaly. Gallbladder and biliary ducts: Normal. No calcified stones. No ductal dilation. Pancreas: Normal. No ductal dilation. Spleen: Spleen enlarged at 13.8 cm. Adrenal glands: Normal. No mass. Kidneys and ureters: Right kidney upper pole heterogeneity concerning for pyelonephritis, please correlate clinically. Stomach and bowel: Prominent fluid in small bowel without dilation may reflect an enteritis. Moderate constipation. Appendix: No evidence of appendicitis. Intraperitoneal space: Unremarkable. No free air. No significant fluid collection. Vasculature: Unremarkable. No abdominal aortic aneurysm. Lymph nodes: Unremarkable. No enlarged lymph nodes. Urinary bladder: Unremarkable as visualized. Reproductive: Unremarkable as visualized. Bones/joints: Unremarkable. No acute fracture. Soft tissues: Unremarkable. Other findings: Small amount nonspecific fluid in the pelvis. CT/CT abdomen pelvis w con* [id number] IMPRESSION: 1. Right kidney upper pole heterogeneity concerning for pyelonephritis, please correlate clinically. 2. Small amount nonspecific fluid in the pelvis. 3. Prominent fluid in small bowel without dilation may reflect an enteritis. 4. Moderate constipation. 5. Spleen enlarged at 13.8 cm. 6. Hepatomegaly.
[2025-04-11 20:27] LABS: Add Urine Microscopic? YES
[2025-04-11 20:27] LABS: Hematocrit 32.8 % (36-47); Hemoglobin 10.90 g/dL (11.27-16.99); Mean Corpuscular HGB Conc 33.2 g/dL (30-55); Mean Corpuscular Hemoglobin 30.2 pg (27-33); Mean Corpuscular Volume 90.9 fl (85-98); Nucleated Red Blood Cells % 0 %; Platelet Count 135 10^3/cmm (157-399); Red Blood Count 3.61 10^6/uL (3.85-5.65); White Blood Count 12.11 10^3/uL (3.29-11.43)
[2025-04-11 20:33] LABS: HCG, Serum Qual Negative (Negative)
[2025-04-11] MEDS: ondansetron 2 mg/ML SDV 2 mL 4 MG IVP (20:34)
[2025-04-11] MEDS: morphine 4 mg/mL SDV 1 mL IVP (20:34)
--- NOTE | 2025-04-11 20:34 | ED_ITS ---
Documented by User: JOHN Simmons 04/11/25 22:30 HPI - Abdominal Pain 2 General: Chief Complaint: Abdominal Pain Stated Complaint: severe pain in RT abd,fever,chills,N Time Seen by Provider: 04/11/25 20:02 Source: patient Mode of arrival: ambulatory Limitations: no limitations History of Present Illness: Patient is a 34-year-old female presents emergency department planing of right lower quadrant abdominal pain for 2 days. No history of abdominal surgeries, she still has her appendix. States that the pain started 2 days ago, she was subsequently evaluated at [facility] where she had urinalysis obtained and then was treated for UTI with Cipro. States that the pain is only worsened despite 4 doses of the Cipro and she is not having urinary symptoms such as bleeding or dysuria. She is denying any vaginal discharge, odor, or vaginal bleeding. States that the right lower quadrant pain feels like something is stabbing her, is 10/10, and radiates directly into the back. Pain worse with movement and straightening her legs. She is endorsing nausea but no vomiting. Denying fevers or chills. No changes in bowel habits. Her vitals are stable at this time but she appears in acute distress secondary to pain. MD elicited complaint: abdominal pain Onset (ago): day(s) (2) Pain Consistency: constant Location: RLQ Severity: severe Quality: stabbing Radiation: back Exacerbating factors: movement and other (Straightening legs) Associated Symptoms: Reports nausea; Denies bloating, change in stool character, chills, constipation, diarrhea, dysuria, fever(s), hematochezia and vomiting Related Data Previous Rx's ?Medication ?Instructions ?Recorded ibuprofen 800 mg tablet 800 mg PO BID PRN pain #60 t abs 03/23/25 tizanidine 4 mg tablet 8 mg (2 x 4 mg) PO BID PRN m uscle 03/23/25 spasticity #120 tabs topiramate 25 mg tablet (Topamax) 25 mg PO BID PRN ner ve pain #60 03/23/25 tabs bupropion HCl 150 mg 24 hr tablet, 150 mg PO QAM #30 t abs 04/06/25 extended release (Wellbutrin XL) ferrous sulfate 325 mg (65 mg 325 mg PO .q48 3 months #45 tabs 04/06/25 iron) tablet (Feosol) Allergies Allergy/AdvReac Type Severity Reaction Status Date / Time No Known Allergies Allergy Verified 04/06/25 14:50 Review of Systems 2 General: Reports: 10 or more systems reviewed and unremarkable except in HPI and below Const: Denies: fever(s), chills, change in appetite, change in weight or diaphoresis ENMT: Denies: throat pain or hoarseness Card: Denies: chest pain, palpitations or lightheadedness Resp: Denies: dyspnea, productive cough or wheezing GI: Reports: abdominal pain and nausea; Denies: vomiting, diarrhea, constipation, bloating, change in stool character or hematochezia : Denies: flank pain, difficulty voiding, dysuria, urinary frequency, urinary urgency, vaginal odor, vaginal bleeding or vaginal discharge Musc: Reports: back pain; Denies: neck pain Skin/Breast: Denies: rash or new lesions Neuro: Denies: headache(s) or dizziness PFSH ED 2 PFSH: Medical History JACOB (iron deficiency anemia) Tobacco use disorder Chronic neck pain Hx of substance abuse Hx of hepatitis C Request for sterilization Concentration deficit Anxiety Moderate major depression History of live X 2 Surgical History H/O pelvic surgery 11/13/2021-Manual extraction of retained placenta, performed by Dr. Ortega at [facility] Hx of bilateral salpingectomy Hx of tubal ligation Family History Father Diabetes Hyperlipidemia Hypertension Stroke Grandmother Diabetes maternal Mother Heart disease Lung cancer Denies family history of Colon cancer Ovarian cancer Clotting disorder Breast cancer Anesthesia complication Bleeding disorder Uterine cancer Thyroid disease Social History Smoking and tobacco/nicotine status: current every day tobacco/nicotine user Alcohol intake: current Alcohol intake frequency: holidays/special occasions only Substance/Drug Use: current Substance/Drug use frequency: daily service: No Current gender identity: Female Physical Exam 2 Const: COMMON NORMALS: patient oriented x3, no limitations, alert and well nourished GENERAL APPEARANCE: cooperative ORIENTATION/CONSCIOUSNESS: Yes awake OTHER: Appears in acute distress secondary to pain, but nontoxic-appearing Neck/C-Spine: COMMON NORMALS: full ROM, supple and no meningeal signs Resp: COMMON NORMALS: normal respiratory effort, No retractions, No use of accessory muscles and clear to auscultation bilaterally AUSCULTATION: clear to auscultation bilaterally, no crackles, no rales, no rhonchi and no wheezes Cardio: COMMON NORMALS: regular rate, regular rhythm, No gallops present (Cardio), No clicks present (Cardio), No murmurs present (Cardio) and No rub (Cardio) RATE: regular rate RHYTHM: regular rhythm GI: COMMON NORMALS: Soft to palpation, No hepatosplenomegaly present and no masses AUSCULTATION: Yes normoactive bowel sounds PALPATION: Yes Soft to palpation and Yes No hepatosplenomegaly present RECTAL EXAM: deferred O THER: Reproducible tenderness to palpation right lower quadrant. Positive psoas sign. : COMMON NORMALS: Yes no CVA tenderness BLADDER/KIDNEY EXAM: Yes no CVA tenderness Back/Pelvis: COMMON NORMALS: no CVA tenderness Extremity: COMMON NORMALS: normal to inspection and full ROM Neuro: COMMON NORMALS: patient oriented x3, moves all extremities, no focal motor deficits and no sensory deficits noted SENSORIUM/ORIENTATION: Yes alert MENINGEAL SIGNS: Yes no meningeal signs Psych: COMMON NORMALS: mental status grossly normal, cooperative and speech normal SPEECH: Yes normal speech Skin: COMMON NORMALS: no rashes or lesions noted GENERAL SKIN EXAM: no rashes or lesions noted Course 2 Vital Signs: Vital signs: Vital Signs Temperature 98.4 F 04/11/25 19:42 Pulse Rate 79 04/11/25 23:08 Respiratory Rate 16 04/11/25 22:47 Blood Pressure 109/68 04/11/25 23:08 Pulse Oximetry 97 04/11/25 23:08 Oxygen Delivery Me thod Room Air 04/11/25 22:30 MDM - Abdominal Pain Medical Decision Making Patient presented for evaluation of right lower quadrant pain for the past 2 days. She had presented to [facility] yesterday diagnosed with a UTI and started on Cipro, she has taken 4 doses but states that the pain in the right lower quadrant is all got worse and she has associated nausea. No fevers or chills. On exam positive tenderness to palpation right lower quadrant with positive psoas sign, she had no previous abdominal surgeries other than tubal ligation. Minimal leukocytosis with her CBC urinalysis does show evidence of what appears to be mild UTI. The abdomen and pelvis CT rules out appendicitis however there is concern of acute pyelonephritis, with her being symptomatic and the evidence of UTI likely that she is failing outpatient therapy on her Cipro. I spoke to the patient in regards to her expectations of care and she agrees to admission to the hospital for IV antibiotics. I spoke to Dr. Swift who agrees to admission, Dr. Crystal placing admit orders here in the ER. Blood cultures obtained, I do not see any previous urine cultures so patient will be started on Rocephin following obtaining the cultures. Lab Data 04/11/25 20:12 04/11/25 20:12 Labs/Radiology: Radiology Impressions Abdomen/Pelvis CT 04/11/25 20:23 IMPRESSION: 1. Right kidney upper pole heterogeneity concerning for pyelonephritis, please correlate clinically. 2. Small amount nonspecific fluid in the pelvis. 3. Prominent fluid in small bowel without dilation may reflect an enteritis. 4. Moderate constipation. 5. Spleen enlarged at 13.8 cm. 6. Hepatomegaly. Laboratory Results WBC 12.11 10^3/uL (3.29-11.43) H 04/11/25 20:12 RBC 3.61 10^6/uL (3.85-5.65) L 04/11/25 20:12 Hgb 10.90 g/dL (11.27-16.99) L 04/11/25 20:12 Hct 32.8 % (36-47) L 04/11/25 20:12 MCV 90.9 fl (85-98) 04/11/25 20:12 MCH 30.2 pg (27-33) 04/11/25 20:12 MCHC 33.2 g/dL (30-55) 04/11/25 20:12 RDW 12.8 % (12.1-15.1) 04/11/25 20:12 Plt Count 135 10^3/cmm (157-399) L 04/11/25 20:12 MPV 11.3 fL (7.4-10.4) H 04/11/25 20:12 Neut % (Auto) 78.4 % 04/11/25 20:12 Lymph % (Auto) 9.5 % 04/11/25 20:12 [place] % (Auto) 11.1 % 04/11/25 20:12 Eos % (Auto) 0.4 % 04/11/25 20:12 Baso % (Auto) 0.3 % 04/11/25 20:12 Neut # (Auto) 9.49 10^3/uL (1.8-7.7) H 04/11/25 20:12 Lymph # (Auto) 1.2 10^3/uL (0.8-4.8) 04/11/25 20:12 [place] # (Auto) 1.3 10^3/uL (0.2-0.9) H 04/11/25 20:12 Eos # (Auto) 0.1 10^3/uL (0.0-0.8) 04/11/25 20:12 Baso # (Auto) 0.0 10^3/uL (0.0-0.1) 04/11/25 20:12 Nucleated RBC % (auto) 0 % 04/11/25 20:12 Nucleated RBCs # 0.0 /100WBC 04/11/25 20:12 Sodium 134 mmol/L (136-145) L 04/11/25 20:12 Potassium 3.9 mmol/L (3.5-5.1) 04/11/25 20:12 Chloride 99 mmol/L (98-107) 04/11/25 20:12 Carbon Dioxide 22 mmol/L (22-29) 04/11/25 20:12 Anion Gap 16.9 (5-19) 04/11/25 20:12 BUN 17 mg/dL (6-20) 04/11/25 20:12 Creatinine 1.0 mg/dL (0.5-0.9) H 04/11/25 20:12 GFR Calculation 64.3 mL/min (90-130) L 04/11/25 20:12 Glucose 117 mg/dL (65-115) H 04/11/25 20:12 Calculated Osmolality 281 mOsm/kg (285-295) L 04/11/25 20:12 Calcium 8.7 mg/dL (8.5-10.5) 04/11/25 20:12 Total Bilirubin 0.4 mg/dL (0.15-1.2) 04/11/25 20:12 AST 14 U/L (0-32) 04/11/25 20:12 ALT 11 U/L (0-33) 04/11/25 20:12 Alkaline Phosphatase 67 U/L (35-105) 04/11/25 20:12 Total Protein 6.7 g/dL (6.6-8.7) 04/11/25 20:12 Albumin 4.2 g/dL (3.5-5.2) 04/11/25 20:12 Globulin 2.5 g/dL (1.3-4.6) 04/11/25 20:12 Lipase 13 U/L (13-60) 04/11/25 20:12 HCG, Qual Negative (Negative) 04/11/25 20:12 Urine Color Dark yellow (Yellow) A 04/11/25 20:05 Urine Appearance Clear (CLEAR) 04/11/25 20:05 Urine pH 6.0 (5-7) 04/11/25 20:05 Ur Specific [place] 1.021 (1.005-1.030) 04/11/25 20:05 Urine Protein 1+ (Negative) A 04/11/25 20:05 Urine Glucose (UA) Negative (Normal) 04/11/25 20: Urine Ketones Negative (Negative) 04/11/25 20: Urine Blood Negative (Negative) 04/11/25 20:05 Urine Nitrate Positive (Negative) A 04/11/25 20: Urine Bilirubin Negative (Negative) 04/11/25 20:05 Urine Urobilinogen 1.0 mg/dL (Negative) 04/11/25 20:05 Ur Leukocyte Esterase Trace (Negative) A 04/11/25 20:05 Urine RBC 0-2 /hpf (0-2) 04/11/25 20:05 Urine WBC 11-20 /hpf (0-5) H 04/11/25 20:05 Ur Squamous Epith Cells 6-10 /hpf (0-5) 04/11/25 20:05 Amorphous Sediment Not Reportable 04/11/25 20:05 Urine Bacteria None seen /hpf (NONE) 04/11/25 20:05 Hyaline Casts 1.65 /lpf 04/11/25 20:05 All radiology interpretation(s) finalized by discharge Discharge Plan Discharge Patient Disposition: Placed in Observation Admit Provider: Giovani Perdomo Clinical Impression: Pyelonephritis Coding Level of Care Code ED Director Of Distance Learning for Chg Fwd Documented by User: Victor M Crystal, DO 04/11/25 23:29 HPI - Abdominal Pain 2 General: Chief Complaint: Abdominal Pain Stated Complaint: severe pain in RT abd,fever,chills,N Time Seen by Provider: 04/11/25 20:02 Related Data Previous Rx's ?Medication ?Instructions ?Recorded ibuprofen 800 mg tablet 800 mg PO BID PRN pain #60 t abs 03/23/25 tizanidine 4 mg tablet 8 mg (2 x 4 mg) PO BID PRN m uscle 03/23/25 spasticity #120 tabs topiramate 25 mg tablet (Topamax) 25 mg PO BID PRN ner ve pain #60 03/23/25 tabs bupropion HCl 150 mg 24 hr tablet, 150 mg PO QAM #30 t abs 04/06/25 extended release (Wellbutrin XL) ferrous sulfate 325 mg (65 mg 325 mg PO .q48 3 months #45 tabs 04/06/25 iron) tablet (Feosol) Allergies Allergy/AdvReac Type Severity Reaction Status Date / Time No Known Allergies Allergy Verified 04/06/25 14:50 PFSH ED 2 PFSH: Medical History JACOB (iron deficiency anemia) Tobacco use disorder Chronic neck pain Hx of substance abuse Hx of hepatitis C Request for sterilization Concentration deficit Anxiety Moderate major depression History of live X 2 Surgical History H/O pelvic surgery 11/13/2021-Manual extraction of retained placenta, performed by Dr. Ortega at [facility] Hx of bilateral salpingectomy Hx of tubal ligation Family History Father Diabetes Hyperlipidemia Hypertension Stroke Grandmother Diabetes maternal Mother Heart disease Lung cancer Denies family history of Colon cancer Ovarian cancer Clotting disorder Breast cancer Anesthesia complication Bleeding disorder Uterine cancer Thyroid disease Social History Smoking and tobacco/nicotine status: current every day tobacco/nicotine user Alcohol intake: current Alcohol intake frequency: holidays/special occasions only Substance/Drug Use: current Substance/Drug use frequency: daily service: No Current gender identity: Female Course 2 Vital Signs: Vital signs: Vital Signs Temperature 98.4 F 04/11/25 19:42 Pulse Rate 79 04/11/25 23:08 Respiratory Rate 16 04/11/25 22:47 Blood Pressure 109/68 04/11/25 23:08 Pulse Oximetry 97 04/11/25 23:08 Oxygen Delivery Me thod Room Air 04/11/25 22:30 MDM - Abdominal Pain Medical Decision Making Patient presented for evaluation of right lower quadrant pain for the past 2 days. She had presented to [facility] yesterday diagnosed with a UTI and started on Cipro, she has taken 4 doses but states that the pain in the right lower quadrant is all got worse and she has associated nausea. No fevers or chills. On exam positive tenderness to palpation right lower quadrant with positive psoas sign, she had no previous abdominal surgeries other than tubal ligation. Minimal leukocytosis with her CBC urinalysis does show evidence of what appears to be mild UTI. The abdomen and pelvis CT rules out appendicitis however there is concern of acute pyelonephritis, with her being symptomatic and the evidence of UTI likely that she is failing outpatient therapy on her Cipro. I spoke to the patient in regards to her expectations of care and she agrees to admission to the hospital for IV antibiotics. I spoke to Dr. Swift who agrees to admission, Dr. Crystal placing admit orders here in the ER. Blood cultures obtained, I do not see any previous urine cultures so patient will be started on Rocephin following obtaining the cultures. Patient originally seen by Mr. Heidi PA-C. I agree with his history, evaluation, and management. Admission orders written. Lab Data 04/11/25 20:12 04/11/25 20:12 Labs/Radiology: Radiology Impressions Abdomen/Pelvis CT 04/11/25 20:23 IMPRESSION: 1. Right kidney upper pole heterogeneity concerning for pyelonephritis, please correlate clinically. 2. Small amount nonspecific fluid in the pelvis. 3. Prominent fluid in small bowel without dilation may reflect an enteritis. 4. Moderate constipation. 5. Spleen enlarged at 13.8 cm. 6. Hepatomegaly. Laboratory Results WBC 12.11 10^3/uL (3.29-11.43) H 04/11/25 20:12 RBC 3.61 10^6/uL (3.85-5.65) L 04/11/25 20:12 Hgb 10.90 g/dL (11.27-16.99) L 04/11/25 20:12 Hct 32.8 % (36-47) L 04/11/25 20:12 MCV 90.9 fl (85-98) 04/11/25 20:12 MCH 30.2 pg (27-33) 04/11/25 20:12 MCHC 33.2 g/dL (30-55) 04/11/25 20:12 RDW 12.8 % (12.1-15.1) 04/11/25 20:12 Plt Count 135 10^3/cmm (157-399) L 04/11/25 20:12 MPV 11.3 fL (7.4-10.4) H 04/11/25 20:12 Neut % (Auto) 78.4 % 04/11/25 20:12 Lymph % (Auto) 9.5 % 04/11/25 20:12 [place] % (Auto) 11.1 % 04/11/25 20:12 Eos % (Auto) 0.4 % 04/11/25 20:12 Baso % (Auto) 0.3 % 04/11/25 20:12 Neut # (Auto) 9.49 10^3/uL (1.8-7.7) H 04/11/25 20:12 Lymph # (Auto) 1.2 10^3/uL (0.8-4.8) 04/11/25 20:12 [place] # (Auto) 1.3 10^3/uL (0.2-0.9) H 04/11/25 20:12 Eos # (Auto) 0.1 10^3/uL (0.0-0.8) 04/11/25 20:12 Baso # (Auto) 0.0 10^3/uL (0.0-0.1) 04/11/25 20:12 Nucleated RBC % (auto) 0 % 04/11/25 20:12 Nucleated RBCs # 0.0 /100WBC 04/11/25 20:12 Sodium 134 mmol/L (136-145) L 04/11/25 20:12 Potassium 3.9 mmol/L (3.5-5.1) 04/11/25 20:12 Chloride 99 mmol/L (98-107) 04/11/25 20:12 Carbon Dioxide 22 mmol/L (22-29) 04/11/25 20:12 Anion Gap 16.9 (5-19) 04/11/25 20:12 BUN 17 mg/dL (6-20) 04/11/25 20:12 Creatinine 1.0 mg/dL (0.5-0.9) H 04/11/25 20:12 GFR Calculation 64.3 mL/min (90-130) L 04/11/25 20:12 Glucose 117 mg/dL (65-115) H 04/11/25 20:12 Calculated Osmolality 281 mOsm/kg (285-295) L 04/11/25 20:12 Calcium 8.7 mg/dL (8.5-10.5) 04/11/25 20:12 Total Bilirubin 0.4 mg/dL (0.15-1.2) 04/11/25 20:12 AST 14 U/L (0-32) 04/11/25 20:12 ALT 11 U/L (0-33) 04/11/25 20:12 Alkaline Phosphatase 67 U/L (35-105) 04/11/25 20:12 Total Protein 6.7 g/dL (6.6-8.7) 04/11/25 20:12 Albumin 4.2 g/dL (3.5-5.2) 04/11/25 20:12 Globulin 2.5 g/dL (1.3-4.6) 04/11/25 20:12 Lipase 13 U/L (13-60) 04/11/25 20:12 HCG, Qual Negative (Negative) 04/11/25 20:12 Urine Color Dark yellow (Yellow) A 04/11/25 20:05 Urine Appearance Clear (CLEAR) 04/11/25 20:05 Urine pH 6.0 (5-7) 04/11/25 20:05 Ur Specific [place] 1.021 (1.005-1.030) 04/11/25 20:05 Urine Protein 1+ (Negative) A 04/11/25 20:05 Urine Glucose (UA) Negative (Normal) 04/11/25 20:05 Urine Ketones Negative (Negative) 04/11/25 20:05 Urine Blood Negative (Negative) 04/11/25 20:05 Urine Nitrate Positive (Negative) A 04/11/25 20:05 Urine Bilirubin Negative (Negative) 04/11/25 20:05 Urine Urobilinogen 1.0 mg/dL (Negative) 04/11/25 20:05 Ur Leukocyte Esterase Trace (Negative) A 04/11/25 20:05 Urine RBC 0-2 /hpf (0-2) 04/11/25 20:05 Urine WBC 11-20 /hpf (0-5) H 04/11/25 20:05 Ur Squamous Epith Cells 6-10 /hpf (0-5) 04/11/25 20:05 Amorphous Sediment Not Reportable 04/11/25 20:05 Urine Bacteria None seen /hpf (NONE) 04/11/25 20:05 Hyaline Casts 1.65 /lpf 04/11/25 20:05 Discharge Plan Discharge Patient Disposition: Placed in Observation Admit Provider: Giovani Perdomo Clinical Impression: Pyelonephritis Coding Level of Care Code ED Director Of Distance Learning for Luis Fernando Justice
[2025-04-11 20:49] LABS: Alanine Aminotransferase 11 U/L (0-33); Albumin Level 4.2 g/dL (3.5-5.2); Alkaline Phosphatase 67 U/L (35-105); Anion Gap 16.9 (5-19); Aspartate Amino Transferase 14 U/L (0-32); Blood Urea Nitrogen 17 mg/dL (6-20); Calcium 8.7 mg/dL (8.5-10.5); Carbon Dioxide 22 mmol/L (22-29); Chloride 99 mmol/L (98-107); Globulin 2.5 g/dL (1.3-4.6); Glucose 117 mg/dL (65-115); Lipase 13 U/L (13-60); Osmolality Calculated 281 mOsm/kg (285-295); Potassium 3.9 mmol/L (3.5-5.1); Sodium 134 mmol/L (136-145); Total Protein 6.7 g/dL (6.6-8.7)
[2025-04-11] MEDS: iohexol 350 mg/mL 500 mL Btl (per mL) IV (21:13)
--- NOTE | 2025-04-11 22:26 | P.HP_ITS ---
Providers/Chief Complaint 2 Primary Care Provider: Pepe Fernandez MD Chief Complaint: severe pain in RT abd,fever,chills,N History of Present Illness Cora Paredes is a 34 year old female with a reported history of treated hepatitis C, who presents with complaints of right upper abdominal pain. She states the pain was noticed yesterday on the right upper quadrant of her abdomen. The pain is on/off and improved with tylenol and ibuprofen. Pain radiates to the right back and is described as a stabbing pain. It can be a 10/10 in intensity. This is something she has never experienced before. She reports subjective fevers and no other sources of pain. She has had some nausea recently. Of note, she went to [facility] for testing where she was told she had a UTI and was given an prescription for Cipro which she feels has not helped. No recent ill contacts or unusual foods. Medications/Allergies Home Medications ?Medication ?Instructions ?Recorded ?Confirmed ?Last Taken ?Type ibuprofen 800 mg tablet 800 mg PO BID PRN pain #60 t abs 03/23/25 04/06/25 Unknown Rx tizanidine 4 mg tablet 8 mg (2 x 4 mg) PO BID PRN m uscle 03/23/25 04/06/25 Unknown Rx spasticity #120 tabs topiramate 25 mg tablet (Topamax) 25 mg PO BID PRN ner ve pain #60 03/23/25 04/06/25 Unknown Rx tabs bupropion HCl 150 mg 24 hr tablet, 150 mg PO QAM #30 t abs 04/06/25 04/06/25 Unknown Rx extended release (Wellbutrin XL) ferrous sulfate 325 mg (65 mg 325 mg PO .q48 3 months #45 tabs 04/06/25 04/06/25 Unknown Rx iron) tablet (Feosol) Allergies Allergy/AdvReac Type Severity Reaction Status Date / Time No Known Allergies Allergy Verified 04/06/25 14:50 PFSH Acute 2 PFSH: Medical History (Updated 04/11/25 @ 22:28 by JOHN Simmons) JACOB (iron deficiency anemia) Tobacco use disorder Chronic neck pain Hx of substance abuse Hx of hepatitis C Request for sterilization Concentration deficit Anxiety Moderate major depression History of live X 2 Surgical History H/O pelvic surgery 11/13/2021-Manual extraction of retained placenta, performed by Dr. Ortega at [facility] Hx of bilateral salpingectomy Hx of tubal ligation Family History Father Diabetes Hyperlipidemia Hypertension Stroke Grandmother Diabetes maternal Mother Heart disease Lung cancer Denies family history of Colon cancer Ovarian cancer Clotting disorder Breast cancer Anesthesia complication Bleeding disorder Uterine cancer Thyroid disease Social History Smoking and tobacco/nicotine status: current every day tobacco/nicotine user Alcohol intake: current Alcohol intake frequency: holidays/special occasions only Substance/Drug Use: current Substance/Drug use frequency: daily service: No Current gender identity: Female Vitals/I&O/Wt Last Vital Signs Temp 98.4 F 04/11/25 19:42 Pulse 86 04/11/25 21:51 Resp 16 04/11/25 20:34 BP 111/64 04/11/25 21:51 Pulse Ox 99 04/11/25 21:51 O2 Del Method Room Air 04/11/25 21:51 Weight last 48 hrs Weight 53.524 kg Physical Exam 2 Narrative: Alert and oriented, sitting up in bed resting, heart regular rate and rhythm, lungs clear to auscultation bilaterally, abdomen soft, mild tenderness to the RUQ. Right flank tenderness on palpation Data 04/11/25 20:12 04/11/25 20:12 A&P Assessment and plan 1. Pyelonephritis: - No improvement with outpatient ciprofloxacin - Will start Enpiric Ceftiaxone and monitor for cultre results. - Also jake be a degree of enteritis contributing as mention by radiology report 2. Dietary iron deficiency without anemia: - Resume iron supplementation PDMP PDMP Reviewed: Not Reviewed Attestations 2 Medical Necessity Statement*: Patient is anticipated to remain inpatient for <48 hours to manage her pyelonephritis Coding Level of Care Code Acute Code for [facility] Diagnoses Pyelonephritis N12 Dietary iron deficiency without anemia E61.1
[2025-04-11] MEDS: morphine 4 mg/mL SDV 1 mL 2 MG IVP (22:47)
[2025-04-11] MEDS: cefTRIAXone 1,000 mg SDV 1000 MG IVP (22:48)
[2025-04-12] VITALS (13 sets, daily range): BP systolic 99–122; BP diastolic 65–78; PULSE 75–89; RESP 16–18; TEMP 36.6–37.6; O2SAT 97–99
[2025-04-12] MEDS: morphine 4 mg/mL SDV 1 mL 2 MG IVP ×7 (03:37→22:29)
[2025-04-12 06:05] LABS: Hematocrit 33.2 % (36-47); Hemoglobin 11.00 g/dL (11.27-16.99); Mean Corpuscular HGB Conc 33.1 g/dL (30-55); Mean Corpuscular Hemoglobin 30.7 pg (27-33); Mean Corpuscular Volume 92.7 fl (85-98); Nucleated Red Blood Cells % 0 %; Platelet Count 127 10^3/cmm (157-399); Red Blood Count 3.58 10^6/uL (3.85-5.65); White Blood Count 9.37 10^3/uL (3.29-11.43)
[2025-04-12] MEDS: ferrous sulfate EC 325 mg Tablet PO (06:21)
[2025-04-12 06:30] LABS: Anion Gap 14.9 (5-19); Blood Urea Nitrogen 11 mg/dL (6-20); Calcium 8.7 mg/dL (8.5-10.5); Carbon Dioxide 25 mmol/L (22-29); Chloride 100 mmol/L (98-107); Glucose 107 mg/dL (65-115); Osmolality Calculated 282 mOsm/kg (285-295); Potassium 3.9 mmol/L (3.5-5.1); Sodium 136 mmol/L (136-145)
--- NOTE | 2025-04-12 08:00 | US_ITS ---
WS: [id number] RIGHT UPPER QUADRANT ULTRASOUND HISTORY: RUQ pain COMPARISON: 04/11/2025 Liver: 18.1 cm in length. Normal size liver and echogenicity. No bile duct dilatation or mass. Portal Vein: Normal hepatopetal flow with monophasic waveform. Gallbladder: Normally distended gallbladder with no stones or wall thickening. CBD: 0.3 cm Pancreas: Normal size and echogenicity. Right kidney: 11.9 cm in length. Normal size and echogenicity. No hydronephrosis or mass. Aorta and IVC: Unremarkable abdominal aorta and IVC. No ascites. Note: Right-sided pyelonephritis report on 04/11/2025 is not evident by ultrasound. CT evaluation was much more sensitive for pyelonephritis. No abscess noted by ultrasound. Multifocal pyelonephritis was noted on the CT of 04/11/2025. US/US abdomen limited [id number] IMPRESSION: Normal right upper quadrant ultrasound.
--- NOTE | 2025-04-12 08:20 | P.PN_ITS ---
Subjective 2 Subjective: She state she feels no better from admission. Was hungry, did eat. Had some nausea prior. No diarrhea. She asks if she could have kidney stones. Pain remains on the RUQ of the abdomen Vitals/I&O/Wt Last Vital Signs Temp 99.3 F 04/12/25 08:07 Pulse 83 04/12/25 08:07 Resp 18 04/12/25 08:07 BP 108/66 04/12/25 08:07 Pulse Ox 97 04/12/25 08:07 O2 Del Method Room Air 04/12/25 08:07 04/11/25 04/12/25 04/12/25 22:59 06:59 14:59 Intake Total 360 / 360 Output Total 200 / 200 Balance 160 / 160 Weight last 48 hrs Weight 53.524 kg Weight 53.524 kg Weight 53.524 kg Physical Exam 2 Narrative: Alert and oriented, sitting up in bed resting, no overt edema, no respiratory distress, abdomen soft, mild tenderness to the RUQ. Right flank tenderness on palpation Data 04/12/25 05:29 04/12/25 05:29 Micro: Microbiology 04/11/25 22:38 Blood Culture - Preliminary Blood SPECIMEN COLLECTED 04/11/25 22:35 Blood Culture - Preliminary Blood SPECIMEN COLLECTED A&P Assessment and plan 1. Pyelonephritis: - No improvement with outpatient ciprofloxacin after 4 doses - Continue Ceftriaxone and monitor for urine culture results from [facility] - Also jake be a degree of enteritis contributing as mention by radiology report - Will check RUQ U/S as well this AM 2. Dietary iron deficiency without anemia: - Continue iron supplementation 3. Hepatosplenomegaly: - Possibly from prior hep C? This has been treated - May also be related to her abdominal pain but if chronic, unlikely. Labs and imaging thus far are reassuring other than the enlarged liver and spleen - Should follow up outpatient PDMP PDMP Reviewed: Not Reviewed Attestations 2 Medical Necessity Statement*: Patient requires ongoing hospitalized due to ongoing complaints of pain. Awaiting urine culture report Coding Level of Care Code Acute Code for Chg Fwd Diagnoses Pyelonephritis N12 Dietary iron deficiency without anemia E61.1 Hepatosplenomegaly R16.2
--- NOTE | 2025-04-12 09:57 | PC.CHAP ---
Pastoral Care Encounter/Spiritual Assessment Type of Contact [] Declined transition mgr visit [] Patient/Family/Request visit [] Outpatient visit [] Follow-up visit [] Physician referral [] Code/Alert [x] Routine visit [] Staff referral [] Actively dying [] Patient sleeping [] Family support [] [] Out of room [] Palliative care [] [] Receiving care in room [] Pre-surgical visit [] Trauma [] Long length of stay [] ICU visit [] Other: Relational/Emotional Strength [x] Patient feels connected with others/family/visitors/staff [] Distress [] Loneliness/isolation [] Abandonment Spirituality of Patient [x] Person of Yudi [] Attends Nondenominational of their Yudi [x] Believes in Prayer [] Reads Bible or Yarsanism materials [] There are Spiritual issues to be addressed Community Board Member Interventions [x] Prayer [x] Active listening [x] Non-anxious presence [x] Spiritual/emotional support [] Crisis/trauma care [] Spiritual counseling [] Bereavement support [] Provided bereavement packet [] Provided Bible/devotional materials [] Provided toy/stuffed animal, coloring book to patient or family member [] Provided Communion [] Anointing/[place] [] Salvation [x] Completed spiritual assessment [] Other: Impact on Illness or Injury [] Angry [] Fearful [] Anxious [] Often cries [] Exhaustion [] Unable to work [] Unable to attend tenriism [] Unable to walk/stand [] Unable to read [] Unable to drive [] Unable to eat/drink [] Unable to sleep [] Unable to be with family [] Patient intubated [] Other: Summary Time spent with patient 5 min
[2025-04-12] MEDS: cefTRIAXone 1,000 mg SDV 1000 MG IVP (21:56)
[2025-04-12] MEDS: MELATONIN 3 MG TABLET PO (22:28)
[2025-04-13] VITALS: BP 110/61; PULSE 68; RESP 17; TEMP 36.7; O2SAT 98
[2025-04-13 04:00] VITALS: BP 112/61; PULSE 77; RESP 18; TEMP 36.9; O2SAT 99
[2025-04-13] MEDS: morphine 4 mg/mL SDV 1 mL 2 MG IVP ×2 (04:35→08:31)
[2025-04-13 07:22] VITALS: BP 121/72; PULSE 87; RESP 16; TEMP 36.7; O2SAT 97
[2025-04-13 08:31] VITALS: RESP 16
[2025-04-13 11:26] VITALS: BP 115/76; PULSE 89; RESP 14; TEMP 36.7; O2SAT 100
--- NOTE | 2025-04-13 12:32 | PM.DCS ---
Discharge Providers Date of Admission: 04/12/25 08:20 Date of Discharge: April 13, 2025 Attending Provider at Admission: Giovani Perdomo MD Attending Provider at Discharge: Elsy Champion MD Primary Care Provider: Pepe Fernandez MD Diagnoses at Discharge Discharge Diagnosis 1. Pyelonephritis: 2. Dietary iron deficiency without anemia: 3. Hepatosplenomegaly: Reason for Visit Reason for Visit: severe pain in RT abd,fever,chills,N Brief History: As per the admitting physician note and the retrospective note review Cora Paredes is a 34 year old female with a reported history of treated hepatitis C, who presents with complaints of right upper abdominal pain. She states the pain was noticed yesterday on the right upper quadrant of her abdomen. The pain is on/off and improved with tylenol and ibuprofen. Pain radiates to the right back and is described as a stabbing pain. It can be a 10/10 in intensity. This is something she has never experienced before. She reports subjective fevers and no other sources of pain. She has had some nausea recently. Of note, she went to [facility] for testing where she was told she had a UTI and was given an prescription for Cipro which she feels has not helped. No recent ill contacts or unusual foods. Hospital Course Hospital Course Patient admitted as a case of symptomatic UTI, was started on ceftriaxone. Patient had significant improvement. The patient examined today and was doing well. The patient antibiotics are advised to Bactrim as per the guidelines for treatment of simple cystitis.Patient informed about adequate hydration to be maintained in the compliance of the medication. Urine cultures were sent, patient is totally asymptomatic and confirmed her contact in case the antibiotic has to be changed will be done accordingly. Patient agreed with the plan of care and appreciated the medical team management. Medications were reconciled after confirmation and according to patient comorbidities and appropriate follow-ups and referrals were provided at the time of discharge. Patient condition has been discussed at length with the patient/family, I have independently reviewed the chart labs imaging/diagnostics/EKG. the goals of care and code status with the patient/family/NOK/legal new accounts representative, and documented accordingly. The management has been done according to the current clinical condition with respect to patient goals of care and based on recommendations/guidelines. The patient/family has been informed about the current condition and further plan of care. Agreed with the plan of care and understood without any language barrier. Every effort was made to ensure accuracy of dental billing specialist. Any obvious errors or omissions should be clarified with the author of the document. Physical Exam Narrative: General: Alert and oriented, lying comfortably without any distress HEENT: Normocephalic, atraumatic, grossly unremarkable exam Cardio: normal rate rhythm, normal S1-S2 without any murmurs, rubs, or gallops and JVD normal Respiratory: normal vascular breathing on auscultation without any wheezes, stridor, rhonchi GI: Abdomen soft, nontender, nondistended, normoactive bowel sounds present all 4 quadrants, Neuro: intact cranial nerves motor and sensory and cerebellar/coordination function without any focal neurological deficit Behavior: Appropriate and cooperative Extremities: Adequate palpable pulses, no edema or cyanosis observed Skin: grossly unremarkable exam Discharge Data Studies Completed and Pending Completed Studies During Hospitalization Category Date Time Status CT abdomen pelvis w con* [id number] Urgent Cat Scan 04/11/25 20:23 Completed US abdomen limited [id number] Routine Ultrasound 04/12/25 08:00 Completed Pending at discharge Category Date Time Status Blood Culture Stat Lab 04/11/25 22:38 Results CBC Auto Diff [Complete Blood Count w/Auto] AM LABS Lab 04/14/25 04:00 Ordered CMP [Comprehensive Metabolic Panel] AM LABS Lab 04/14/25 04:00 Ordered Urine Culture Stat Lab 04/13/25 09:40 Received Radiology Impressions Abdomen/Pelvis CT 04/11/25 20:23 IMPRESSION: 1. Right kidney upper pole heterogeneity concerning for pyelonephritis, please correlate clinically. 2. Small amount nonspecific fluid in the pelvis. 3. Prominent fluid in small bowel without dilation may reflect an enteritis. 4. Moderate constipation. 5. Spleen enlarged at 13.8 cm. 6. Hepatomegaly. Abdomen Ultrasound 04/12/25 08:00 IMPRESSION: Normal right upper quadrant ultrasound. Laboratory Results WBC 9.37 10^3/uL (3.29-11.43) 04/12/25 05:29 RBC 3.58 10^6/uL (3.85-5.65) L 04/12/25 05:29 Hgb 11.00 g/dL (11.27-16.99) L 04/12/25 05:29 Hct 33.2 % (36-47) L 04/12/25 05:29 MCV 92.7 fl (85-98) 04/12/25 05:29 MCH 30.7 pg (27-33) 04/12/25 05:29 MCHC 33.1 g/dL (30-55) 04/12/25 05:29 RDW 12.7 % (12.1-15.1) 04/12/25 05:29 Plt Count 127 10^3/cmm (157-399) L 04/12/25 05:29 MPV 11.6 fL (7.4-10.4) H 04/12/25 05:29 Neut % (Auto) 76.4 % 04/12/25 05:29 Lymph % (Auto) 12.4 % 04/12/25 05:29 [place] % (Auto) 10.0 % 04/12/25 05:29 Eos % (Auto) 0.5 % 04/12/25 05:29 Baso % (Auto) 0.3 % 04/12/25 05:29 Neut # (Auto) 7.15 10^3/uL (1.8-7.7) 04/12/25 05:29 Lymph # (Auto) 1.2 10^3/uL (0.8-4.8) 04/12/25 05:29 [place] # (Auto) 0.9 10^3/uL (0.2-0.9) 04/12/25 05:29 Eos # (Auto) 0.1 10^3/uL (0.0-0.8) 04/12/25 05:29 Baso # (Auto) 0.0 10^3/uL (0.0-0.1) 04/12/25 05:29 Nucleated RBC % (auto) 0 % 04/12/25 05:29 Nucleated RBCs # 0.0 /100WBC 04/12/25 05:29 Sodium 136 mmol/L (136-145) 04/12/25 05:29 Potassium 3.9 mmol/L (3.5-5.1) 04/12/25 05:29 Chloride 100 mmol/L (98-107) 04/12/25 05:29 Carbon Dioxide 25 mmol/L (22-29) 04/12/25 05:29 Anion Gap 14.9 (5-19) 04/12/25 05:29 BUN 11 mg/dL (6-20) 04/12/25 05:29 Creatinine 0.8 mg/dL (0.5-0.9) 04/12/25 05:29 GFR Calculation 83.1 mL/min (90-130) L 04/12/25 05:29 Glucose 107 mg/dL (65-115) 04/12/25 05:29 Calculated Osmolality 282 mOsm/kg (285-295) L 04/12/25 05:29 Calcium 8.7 mg/dL (8.5-10.5) 04/12/25 05:29 Total Bilirubin 0.4 mg/dL (0.15-1.2) 04/11/25 20:12 AST 14 U/L (0-32) 04/11/25 20:12 ALT 11 U/L (0-33) 04/11/25 20:12 Alkaline Phosphatase 67 U/L (35-105) 04/11/25 20:12 Total Protein 6.7 g/dL (6.6-8.7) 04/11/25 20:12 Albumin 4.2 g/dL (3.5-5.2) 04/11/25 20:12 Globulin 2.5 g/dL (1.3-4.6) 04/11/25 20:12 Lipase 13 U/L (13-60) 04/11/25 20:12 HCG, Qual Negative (Negative) 04/11/25 20:12 Urine Color Dark yellow (Yellow) A 04/11/25 20:05 Urine Appearance Clear (CLEAR) 04/11/25 20:05 Urine pH 6.0 (5-7) 04/11/25 20:05 Ur Specific [place] 1.021 (1.005-1.030) 04/11/25 20:05 Urine Protein 1+ (Negative) A 04/11/25 20: Urine Glucose (UA) Negative (Normal) 04/11/25 20: Urine Ketones Negative (Negative) 04/11/25 20: Urine Blood Negative (Negative) 04/11/25 20:05 Urine Nitrate Positive (Negative) A 04/11/25 20:05 Urine Bilirubin Negative (Negative) 04/11/25 20: Urine Urobilinogen 1.0 mg/dL (Negative) 04/11/25 20: Ur Leukocyte Esterase Trace (Negative) A 04/11/25 20:05 Urine RBC 0-2 /hpf (0-2) 04/11/25 20:05 Urine WBC 11-20 /hpf (0-5) H 04/11/25 20:05 Ur Squamous Epith Cells 6-10 /hpf (0-5) 04/11/25 20:05 Amorphous Sediment Not Reportable 04/11/25 20:05 Urine Bacteria None seen /hpf (NONE) 04/11/25 20:05 Hyaline Casts 1.65 /lpf 04/11/25 20:05 Vitals Last Vital Signs Temp 98.0 F 04/13/25 11:26 Pulse 89 04/13/25 11:26 Resp 14 04/13/25 11:26 BP 115/76 04/13/25 11:26 Pulse Ox 100 04/13/25 11:26 O2 Del Method Room Air 04/13/25 11:26 Discharge Plan Discharge Patient Disposition: Home Condition: Stable Prescriptions: New sulfamethoxazole-trimethoprim [Bactrim DS] 800-160 mg tablet 1 tab PO BID 5 Days Qty: 10 0RF Continued ibuprofen 800 mg tablet 800 mg PO BID PRN (Reason: pain) Qty: 60 0RF tizanidine 4 mg tablet 8 mg PO BID PRN (Reason: muscle spasticity) Qty: 120 0RF topiramate [Topamax] 25 mg tablet 25 mg PO BID PRN (Reason: nerve pain) Qty: 60 0RF ferrous sulfate [Feosol] 325 mg (65 mg iron) tablet 325 mg PO .q48 90 Days Qty: 45 1RF bupropion HCl [Wellbutrin XL] 150 mg tablet extended release 24 hr 150 mg PO QAM Qty: 30 1RF Discharge Order = DC NOW: Discharge Order (Routine); Ordered 04/13/25 Ordered By: Elsy Champion Referrals: Pepe Fernandez MD [Primary Care Provider, Family Practice] Referral Note: We have notified your physician's clinic of the need for a follow-up appointment to be scheduled. If you have not heard from them within the next 2 business days, please call them directly. Discharge Diet: Advance as tolerated Discharge Activity: Resume usual activity Patient Instructions: Ciprofloxacin (By mouth), Urinary Tract Infection in Women (GEN), Opioid Safety, Patient Portal & Reyes Instructions Discharge Attestations Time Spent in Discharge Care*: greater than 30 min Specific Discharge Activities: educating patient, educating and/or supporting family/caregiver, discussing with pcp/other providers, discussing with case finishing machine adjuster/social workers/dc planners, documenting/other paperwork and evaluating patient/reviewing data Status at Discharge: Cognitive status at discharge: cognitively intact, Behavioral status at discharge: cooperative, Functional status at discharge: independent ambulation, Overall status at discharge: patient is back to baseline Quality Metrics Clinical Quality Measures [ No reported AMI, CVA or VTE this stay] Coding Level of Care Code Acute Code for Chg Fwd Diagnoses Pyelonephritis N12 Dietary iron deficiency without anemia E61.1 Hepatosplenomegaly R16.2
[2025-04-13] MEDS: sulfamethoxazole-trimeth DS 160-800 mg Tablet 2 TAB PO (12:51)
[2025-04-13 12:57] VITALS: BP 115/76; PULSE 89; RESP 14; TEMP 36.7; O2SAT 100
== END 2025-04-13 12:58 | disposition home or self-care (01) | DRG 463 ==
LOC: ER 23:08 → MEDSURG 23:12
PROVIDERS: Admitting Provider Family Medicine; Emergency Provider Physician Assistant; PCP Family Medicine; Visit Provider Student in an Organized Health Care Education/Training Program
DX: N12 Tubulo-interstitial nephritis, not specified as acute or chronic (principal); E61.1 Iron deficiency; R16.2 Hepatomegaly with splenomegaly, not elsewhere classified; F41.9 Anxiety disorder, unspecified; F32.9 Major depressive disorder, single episode, unspecified
CPT/HCPCS: 36415; 74177; 76705; 80048; 80053; 81001; 83690; 84703; 85025; 87040; 87086; 96372; G0378; J0696; J1650; J2270; J2405; J9999